=== PATIENT | male | born 1935 | race Caucasian/White ===

== ENCOUNTER → 2017-03-28 | Outpatient (CLI) | payer MEDICARE ==
[2013-11-09 16:02] VITALS: BMI 25.8
[~2017-03-28] MED LIST: ACET-1966 PO; ACET-3017 PO; ALBU8.5H IH; ANTI1CAP PO; ASPI81TA94 PO; BIMA2.5D5 OP; CALC-901 PO; CYCL10TA29 PO; DOCU-416 PO; ESOM20CA2 PO; GABA-549 PO; LACT1CAP6 PO; MULT-1287 PO; MULT-1381 PO; MULT-775 PO; MULT-964 PO; NAPR-1043 PO; ONDA4TAB PO; OXYC-865 PO; PER PO; PRAV40TA78 PO; PSYL0.4C2; PSYL0.5235 PO; PSYL3.4P2 PO; RIVA15TA PO; ROSU20TA13 PO; TADA5TAB7 PO; TAMS0.4C25 PO; [UNRECOGNIZED DRUG - CODE] PO; [UNRECOGNIZED DRUG - REMARK]
--- NOTE | 2017-03-28 21:10 | RADIOLOGY IMAGING REPORT ---
FACILITY: [facility] PATIENT NAME: Valente Carrillo : 1935 MR: [id number] V: [id number] EXAM DATE: ORDERING PHYSICIAN: CARL ENRIQUEZ TECHNOLOGIST: Location: [facility] Patient: Valente Carrillo : 1935 Visit/Account:[id number] Date of Sevice: 03/28/2017 EXAMINATION: High-resolution CT chest without IV contrast HISTORY: Cough. TECHNIQUE: Axial CT images of the chest were obtained without IV contrast, including high-resolutio n inspiratory and expiratory images, and prone images. Coronal and sagittal 2D reconstructed images w ere obtained. One of the following dose optimization techniques was utilized in the performance of this exam: Autom ated exposure control; adjustment of the mA and/or kV according to the patient's size; or use of an i terative reconstruction technique. Specific details can be referenced in the facility's radiology C T exam operational policy. COMPARISON: CTA chest with IV contrast 03/16/2014. FINDINGS: Lungs and pleura: There is a small region of fibrotic appearing linear and reticular opacity along t he peripheral aspect of the left lower lobe posteriorly, likely new or progressed from the prior exam of 2013. There is minimal subpleural fibrosis in the right lung base. No honeycombing. The mid and u pper lungs are unremarkable by CT. Central airways are patent. No bronchiectasis. No significant air trapping on expiratory imaging. No pleural effusion or pneumothorax. Mediastinum and will: There are multiple small calcified mediastinal lymph nodes, compatible with ol d granulomatous disease. No pathologically enlarged noncalcified lymph nodes. Heart, aorta, and great vessels: Mild ectasia of the ascending thoracic aorta, measuring 4.0 cm. Mil d coronary artery calcification. Normal heart size. No pericardial effusion. Chest lymph node assessment: Calcified mediastinal lymph nodes per above. No enlarged noncalcified l ymph nodes in the chest. Bones: Mild thoracolumbar scoliosis, with multilevel degenerative changes throughout the spine. No a cute osseous findings. Chest wall: Negative. Lower neck: Negative. Upper abdomen: Negative. IMPRESSION: 1. Small region of fibrotic appearing interstitial opacities in the left lower lobe posteriorly, with some minimal subpleural fibrosis in the right lung base. No honeycombing. 2. No focal consolidation or suspicious pulmonary nodule or mass. 3. Calcified mediastinal lymph nodes, suggesting old granulomatous disease. 4. Mild ectasia of the ascending thoracic aorta, measuring 4.0 cm. Report Dictated By: Andrew Higgins MD at 03/28/2017 8:57 PM Report E-Signed By: Andrew Higgins MD at 03/28/2017 9:06 PM WSN:[id number]
== END ==
LOC: CT 00:55
PROVIDERS: ATTEND Emergency Medicine
DX: R91.8 Other nonspecific abnormal finding of lung field (principal); I77.810 Thoracic aortic ectasia; I25.10 Atherosclerotic heart disease of native coronary artery without angina pectoris
CPT/HCPCS: 71250

== ENCOUNTER → 2017-05-29 | Outpatient (CLI) | payer MEDICARE ==
[2013-11-09 16:02] VITALS: BMI 25.8
--- NOTE | 2017-05-29 11:00 | EKG ---
[place] [facility] [place] NAME: DILCIA STRONG : [id number] MR: [id number] V: [id number] EXAM DATE: ORDERING PHYSICIAN: CARL ENRIQUEZ TECHNOLOGIST: TANNER Test Reason : PRE OP CLEARANCE Blood Pressure : / mmHG Vent. Rate : 049 BPM Atrial Rate : 049 BPM P-R Int : 206 ms QRS Dur : 096 ms QT Int : 412 ms P-R-T Axes : 063 072 023 degrees QTc Int : 372 ms Sinus bradycardia with premature supraventricular complexes Otherwise normal ECG When compared with ECG of 10-AUG-2014 08:59, premature supraventricular complexes are now present Confirmed by CARL ENRIQUEZ ([id number]) on 06/11/2017 9:28:32 AM Referred By: ZOE Confirmed By:CARL ENRIQUEZ
== END ==
LOC: LAB 10:22
PROVIDERS: ATTEND Emergency Medicine
DX: Z01.818 Encounter for other preprocedural examination (principal); R00.1 Bradycardia, unspecified; I49.3 Ventricular premature depolarization; Z85.46 Personal history of malignant neoplasm of prostate
CPT/HCPCS: 36415; G0103; 82040; 82247; 82310; 82374; 82435; 82565; 82947; 84075; 84132; 84153; 84155; 84295; 84450; 84460; 84520

== ENCOUNTER 2017-06-26 05:03 | Inpatient (IN) | payer MEDICARE, OTHER ==
[2017-05-23 14:23] LABS: PLATELET COUNT, AUTOMATED 155 K/uL (150-450)
[~2017-06-26] VITALS: Ht 182.9 cm; Wt 83.0 kg
[2017-06-26] VITALS (9 sets, daily range): BP systolic 120–157; BP diastolic 75–101
[~2017-06-26 05:03] MED LIST changes: +TRAM100T8 PO
[2017-06-26] MEDS ORDERED: ceFAZolin(*) 2GM/D5W 50ML 50 ML IVPB ONE (06:00)
[2017-06-26] MEDS ORDERED: FAMOTIDINE 20 MG TAB PO ONE ×2 (06:00)
[2017-06-26] MEDS ORDERED: NORMOSOL R SOLN(*) 1000 ML BAG 1,000 ML IV PRN ×2 (06:00)
[2017-06-26] MEDS ORDERED: MIDAZOLAM 2 MG/2 ML VIAL IVP PRN ×2 (06:00)
[2017-06-26] MEDS ORDERED: LIDOCAINE/SOD BICARB 8.4% SYR ID ONE ×2 (06:00)
[2017-06-26] MEDS ORDERED: THROMBIN (BOVINE) 20,000 UNIT VIAL ONE (07:30)
[2017-06-26] MEDS ORDERED: fentaNYL CITR 100 MCG/2 ML AMP ONE ×5 (10:13→15:00)
[2017-06-26] MEDS ORDERED: MIDAZOLAM 2 MG/2 ML VIAL ONE (10:13)
[2017-06-26] MEDS ORDERED: PROPOFOL EMUL(*) 10MG/ML 20 ML 20 ML ONE (10:14)
[2017-06-26] MEDS ORDERED: ROCURONIUM BROM 10 MG/ML 10 ML ONE ×2 (10:14→10:16)
[2017-06-26] MEDS ORDERED: LIDOCAINE MPF 1% 5 ML VIAL ONE (10:14)
[2017-06-26] MEDS ORDERED: ONDANSETRON 4 MG/2 ML VIAL ONE (10:14)
[2017-06-26] MEDS ORDERED: DEXAMETHASONE SOD PHOS 10MG/ML ONE (10:14)
[2017-06-26] MEDS ORDERED: KETAMINE HCL 500 MG/10 ML VIAL ONE (11:39)
[2017-06-26] MEDS ORDERED: NS 0.9% IRRIGATION 1000ML PLCT IR ONE (11:42)
[2017-06-26] MEDS ORDERED: ePHEDrine 25 MG/5 ML DISP.SYR IVP ONE ×2 (11:58→13:00)
[2017-06-26] MEDS ORDERED: GLYCOPYRROLATE 0.2 MG/ML SDV ONE (12:15)
[2017-06-26] MEDS ORDERED: SUGAMMADEX SOD 500 MG/5 ML SDV ONE (13:39)
--- NOTE | 2017-06-26 14:13 | RADIOLOGY IMAGING REPORT ---
FACILITY: [facility] [place] PATIENT NAME: Valente Carrillo : 1935 MR: [id number] V: [id number] EXAM DATE: ORDERING PHYSICIAN: CHARLOTTE FORTE TECHNOLOGIST: [place] [facility] [place] : 1935 Visit/Account:[id number] Date of Sevice: 06/26/2017 Exam type: LUMBAR SPINE 1 VIEW History: L4-5 LAMINECTOMY, L4-5 POSTEROLATERAL FUSION Comparison: MR lumbar spine September 21, 2016. Findings: Two intraoperative prone crosstable lateral views of the lumbar spine were submitted. Surgical instr uments project over the operative field in addition to a sponge markers. Images demonstrate placemen t of pedicle screws at L4 and L5. Assuming the patient has five lumbar type vertebra IMPRESSION: 1. As above Report Dictated By: Corinne Galloway MD at 06/26/2017 2:08 PM Report E-Signed By: Corinne Galloway MD at 06/26/2017 2:10 PM WSN:[email or web address]
[2017-06-26] MEDS ORDERED: ACETAMINOPHEN(*)1000 MG/100 ML 100 ML IVPB ONE (14:25)
[2017-06-26] MEDS ORDERED: oxyCODONE HCL 5 MG CAP PO PRN (14:45)
[2017-06-26] MEDS ORDERED: MAGNESIUM HYDROXIDE* 30ML UDCP PO PRN (14:45)
[2017-06-26] MEDS ORDERED: BENZOCAINE/MENTHOL 1 EACH LOZG PO PRN (14:45)
[2017-06-26] MEDS ORDERED: HYDROmorphone HCL 2 MG/ML SDV IVP PRN (14:45)
[2017-06-26] MEDS ORDERED: LR(*) 1000 ML BAG 1,000 ML IV PRN (14:45)
[2017-06-26] MEDS ORDERED: FLUSH 10 ML SYR IVP PRN (14:45)
[2017-06-26] MEDS ORDERED: diphenhydrAMINE 25 MG CAP PO PRN (14:45)
[2017-06-26] MEDS ORDERED: BISACODYL 10 MG SUPP PR PRN (14:45)
[2017-06-26] MEDS ORDERED: ONDANSETRON 4 MG/2 ML VIAL IVP PRN (14:45)
[2017-06-26] MEDS ORDERED: DIAZEPAM 5 MG TAB PO PRN (14:45)
[2017-06-26] MEDS ORDERED: TRAM-420 PO (17:07)
[2017-06-26] MEDS ORDERED: ACET-2146 PO (17:07)
[2017-06-26] MEDS ORDERED: ACETAMINOPHEN(*)1000 MG/100 ML 100 ML IVPB PRN (18:00)
[2017-06-26] MEDS: APAP/HYDROCODONE 325/5 TAB PO PRN ×3 (18:13→22:25)
[2017-06-26] MEDS ORDERED: ACETAMINOPHEN 500 MG TAB PO PRN (20:00)
[2017-06-26] MEDS: DOCUSATE SODIUM 100 MG CAP PO SCH (20:25)
[2017-06-26] MEDS: ceFAZolin(*) 2GM/D5W 50ML 50 ML IVPB SCH (20:27)
--- NOTE | 2017-06-26 22:45 | Hospitalist Consultation ---
History of Present Illness Requesting Physician Dr. Forte Reason for Consult History of pulmonary embolism History of Present Illness This patient was admitted for spine surgery. It is reported that the surgery went well and was without complication. History Problems: (1) Trigeminal neuralgia Status: Chronic (2) Prostate cancer Status: Resolved (3) Kidney stone on left side Status: Chronic (4) Ventricular quadrigeminy Status: Chronic (5) Erectile dysfunction Status: Chronic (6) History of pulmonary embolism Status: Chronic (7) History of appendectomy Status: Chronic (8) H/O laminectomy Status: Chronic (9) Cataract extraction status Status: Chronic Home Meds Active Scripts Albuterol Sulfate 90 Mcg/Act (PROAIR HFA 90 MCG/ACT) 8.5 Gm Hfa.aer.ad, 2 PUFF IH Q4-6H, #1 INHALER Prov:BHUMI LOPEZ MD 03/25/17 Pravastatin Sodium (PRAVASTATIN SODIUM) 40 Mg Tablet, 40 MG PO QDAY, #30 TAB 11 Refills Prov:BHUMI LOPEZ MD 03/25/17 Reported Medications Acetaminophen 500 Mg Tab (ACETAMINOPHEN EXTRA STRENGTH) 500 Mg Tablet, 500 MG PO QID for PAIN, TAB 06/26/17 Tramadol Hcl (TRAMADOL HCL) 50 Mg Tablet, 50 MG PO BID Y for PAIN, TAB 06/26/17 Naproxen Sodium (ALEVE) 220 Mg Tablet, 1 TAB PO BID, TAB 01/15/17 Antiox#10/Om3/Dha/Epa/Lut/Zeax (I-CAPS WITH LUTEIN-OMEGA 3 SFG) 1 Each Capsule, 1 EACH PO DAILY, CAPSULE 01/15/17 Psyllium Husk (Metamucil) Unknown Strength Capsule 01/15/17 Multivitamin (MEN'S MULTI-VITAMIN) 1 Each Tablet, 1 EACH PO DAILY 01/15/17 Aspirin (ASPIRIN) 81 Mg Tab.chew, 81 MG PO QDAY, TAB.CHEW 08/06/14 Calcium Citrate/Vitamin D3 (CALCIUM CITRATE - VIT D CAPLET) 1 Each Tablet, 1 EACH PO BID 11/09/13 Glucosamine Sulfate 2KCL (GLUCOSAMINE SULFATE) 1,000 Mg Capsule, 1 CAPSULE PO BID, CAPSULE 11/09/13 Bimatoprost (LUMIGAN) 2.5 Ml Drops, 0.01 ML OP DAILY 11/08/13 Discontinued Reported Medications Tramadol Hcl (TRAMADOL HCL) 100 Mg Tab.er.24h, 300 MG PO BID, TAB 06/18/17 Allergies: Coded Allergies: corn (Verified Allergy, Severe, ANAPHYLAXIS, 08/06/14) Uncoded Allergies: CATS (Allergy, Mild, 04/27/08) Hx Smoking: No Smoking Status: Never Smoker Exposure to Second Hand Smoke?: No Caffeine Intake: Coffee, Soda Caffeine/Cups Per Day: 2 CPD Hx Alcohol Use: Yes Alcohol Used: Beer, Wine Hx Substance Use Disorder: No Social Drug Use: Never Review of Systems All Systems Reviewed/Normal: Yes Exam Vital Signs Vital Signs Date Time Temp Pulse Resp B/P (MAP) Pulse Ox O2 Delivery O2 Flow Rate FiO2 06/26/17 22:23 85 06/26/17 22:23 Nasal Cannula 1.0 06/26/17 18:20 129/101 (110) 06/26/17 17:30 89 06/26/17 15:53 16 06/26/17 15:53 97.8 Neuro: No Gross deficits Eyes: PERRLA Cardiovascular: Regular Rate and Rhythm Respiratory: Clear to Auscultation Extremities: No Edema Integumentary: No Cyanosis Assessment and Plan Problems: (1) History of pulmonary embolism *Optional Permanent Comment*: 2013 Last Edited By: Bhumi Lopez MD on May 13:01 Status: Chronic Assessment & Plan: He does have a history of pulmonary embolism in 2013, but has been off anticoagulation since his initial treatment period. Dr. Forte has ordered a 30 day course of Xarelto, but we will need to clarify when this can be started. Copies to: CHARLOTTE FORTE MD Venous Thromboembolism Antithrombotics Is Pt On Any Antithrombotics?: Yes Exam Sepsis Risk: No Definite Risk NATHAN ADAMS DO Jun 26, 2017 22:45
[2017-06-27 04:09] VITALS: BP 135/72
[2017-06-27] MEDS: ceFAZolin(*) 2GM/D5W 50ML 50 ML IVPB SCH ×2 (04:15→11:56)
[2017-06-27] MEDS ORDERED: PER PO ×2 (06:46→10:25)
[2017-06-27] MEDS ORDERED: DIA5 PO ×2 (06:47→10:24)
[2017-06-27] MEDS ORDERED: DOCU240C84 PO ×2 (06:47→10:26)
[2017-06-27] MEDS: APAP/HYDROCODONE 325/5 TAB PO PRN ×2 (07:18→12:02)
[2017-06-27 07:20] VITALS: BP 142/81
[2017-06-27] MEDS: DOCUSATE SODIUM 100 MG CAP PO SCH (08:37)
[2017-06-27] MEDS ORDERED: PRAVASTATIN SOD 20 MG TAB PO SCH (09:00)
[2017-06-27] MEDS ORDERED: BIMATOPROST 2.5 ML BTL 2.5 ML BTL OP SCH (09:00)
--- NOTE | 2017-06-27 09:37 | RADIOLOGY IMAGING REPORT ---
FACILITY: [facility] PATIENT NAME: Valente Carrillo : 1935 MR: [id number] V: [id number] EXAM DATE: ORDERING PHYSICIAN: CHARLOTTE FORTE TECHNOLOGIST: Location: [facility] [place] Patient: Valente Carrillo : 1935 Visit/Account:[id number] Date of Sevice: 06/27/2017 Exam type: LUMBAR SPINE 2 OR 3 VIEW History: L4-5 laminectomy and posterior lateral fusion Comparison: June 26, 2017. Findings: AP and lateral views of the lumbar spine demonstrate laminectomy changes at L4 and posterior lumbar i nterbody fusion at L4-5 with the aid of pedicle screws and short segment posterior fixation rods. Th e vertebral bodies appear in good anatomic alignment. Incidentally noted is moderate severe disc spa ce narrowing at L5-S1 with sclerosis of the adjacent endplates. Also noted is severe disc space narr owing at T11-12, T12-L1 and L1-L2 with anterior osteophytes. Incidentally noted are brachytherapy se eds projecting over the prostate IMPRESSION: 1. Postsurgical changes at L4-5 from posterior lumbar interbody fusion with the vertebral bodies danilo earing in good anatomic alignment Additional spondylotic changes of the visualized thoracal lumbar spine as described Report Dictated By: Corinne Galloway MD at 06/27/2017 9:30 AM Report E-Signed By: Corinne Galloway MD at 06/27/2017 9:33 AM WSN:[email or web address]
[2017-06-27] MEDS ORDERED: RIVAROXABAN 10 MG TAB PO ONE (10:00)
--- NOTE | 2017-06-27 10:09 | Hospitalist Progress Note ---
Subjective Progress Notes Subjective He has no complaints this morning. Patient Complains of: Cardiovascular: No: Chest Pain Respiratory: No: Shortness of Breath Physical Exam Vital Signs Date Time Temp Pulse Resp B/P (MAP) Pulse Ox O2 Delivery O2 Flow Rate FiO2 06/27/17 09:20 85 06/27/17 09:00 Room Air 06/27/17 07:20 80 16 142/81 (101) 06/27/17 04:09 98.6 0.5 Intake and Output 06/28/17 06:59 Intake Total 120 ml Balance 120 ml Intake Oral 120 ml General Appearance: Alert, Awake, No Acute Distress, Afebrile Cardiovascular: Regular Rate and Rhythm Respiratory: No Respiratory Distress, Clear to Auscultation Psych: Alert & Oriented X3, Appropriate Mood & Affect Assessment and Plan Problems: (1) History of pulmonary embolism *Optional Permanent Comment*: 2013 Last Edited By: Bhumi Lopez MD on May 13:01 Status: Chronic Assessment & Plan: He does have a history of pulmonary embolism in 2013, but has been off anticoagulation since his initial treatment period. Dr. Cooper has ordered a 30 day course of Xarelto. Per Dr. Cooper, we should start Xarelto today. He will be given his first Xarelto prior to discharge. Patient is aware to start prescription at home tomorrow. Exam Sepsis Risk: No Definite Risk NELLA TALAVERA ELECTRICIAN SUPERVISOR Jun 27, 2017 10:09
[2017-06-27] MEDS ORDERED: RIVA10TA PO (10:11)
[2017-06-27 10:41] VITALS: Ht 182.9 cm; Wt 83.0 kg
[2017-06-27 12:44] VITALS: BP 137/85
--- NOTE | 2017-06-27 13:46 | Medical Nutrition Therapy ---
Nutrition Anthropometrics Height (Inches): 72.00 Height (Calculated Centimeters: [phone] Weight (Pounds): 183 Weight (Calculated Kilograms): 83.007 BMI Calculated: 24.82 Henry Nutrition Score: Adequate Henry Nutrition Risk Score: 19 Dietary Referral Nutrition Risk Factors: Nutrition Risk Comment: Nutritional Diagnosis Nutritional Risk Acuity 4: Good Appetite Past Medical History: trigeminal neuralgia, prostate cancer, cataracts, appendectomy Nutritional Acuity: 4-Low Nutrition Diagnosis: Increased Nutrient Needs Nutrition Etiology: Mechanical/Motor Issues Nutrition Problem/Etiology/Sym: increased need for healing post spine surgery. Energy Requirement: 2075 (kcal/day (25 kcal/kg)) Protein Requirement: 83 (g/dy (1.0 g/kg)) Fluid Requirement: 2500 (mL/day (30 mL/kg)) Diet Type: Diet as Tolerated JELENA/REG Nutrition Intervention: Cont diet as ordered, Encourage intake Nutrition Monitoring & Eval Nutrition Goals: Eat 75-100% Meal Nutrition Follow-Up: Good Intake RD Patient Assessment Time: [address] Assessment Type: RD Assessment Patient Nutrition Acuity: 4-Low Follow Up Date: Jul 04, 2017 Nutritional Comment: 06/27 Pt admitted for spine surgery. Pt diet as tolerated and has consumed 100% x 1 meal since admit. Pt has no nutritionally relevant labs. Monitor pt progress and intake. LOS COWAN Jun 27, 2017 10:49
--- NOTE | 2017-06-27 15:09 | OPERATIVE REPORT 1 ---
EVENT DATE: June 26, 2017 SURGEON: Bryon Cooper MD ANESTHESIOLOGIST: Antonino King MD ANESTHESIA: General endotracheal anesthesia. COUGAR HUNTER: TAL Toney PREOPERATIVE DIAGNOSIS L4-L5 spinal stenosis with degenerative spondylolisthesis. POSTOPERATIVE DIAGNOSIS L4-L5 spinal stenosis with degenerative spondylolisthesis. PROCEDURE PERFORMED L4-L5 laminectomy with posterolateral instrumented fusion. INTRAVENOUS FLUIDS 1700 mL ESTIMATED BLOOD LOSS 150 mL IMPLANTS USED Reline pedicle screws 6.5 mm x 45 mm from [employer] times four, 45 mm connecting rods from [employer] times two, and locking caps from [employer] times four. SPECIMENS None. DRAINS None. COMPLICATIONS None. DISPOSITION Postanesthesia care unit. INDICATIONS FOR SURGERY Mr. Carrillo is a 81-year-old gentleman who presented to my clinic with chief complaint of bilateral lower extremity radiating pain, numbness, and tingling with decreased walking tolerance secondary to sensation of weakness and heaviness in his legs. He had undergone a right-sided L4-L5 laminoforaminotomy in the past with some relief of symptoms, but then in the recent months, symptoms had worsened. He had failed physical therapy, injection therapy, activity modifications, and medications. His physical examination revealed no focal neurologic deficits, but his imaging studies showed severe spinal stenosis at the L4-L5 level with a grade 1 anterolisthesis as well. The canal was quite tight secondary to a broad-based disk bulge, facet hypertrophy, and ligamentum flavum thickening. Secondary to ongoing symptoms and failure to improve with nonsurgical care, Mr. Carrillo was offered and elected to undergo L4- L5 laminectomy and fusion. Prior to surgery, I explained in detail to the patient the possible risks of surgery. These included bleeding, infection, damage to surrounding structures, nerve root injury, spinal fluid leak, meningitis, persistent and/or worsening pain, , blindness, sexual dysfunction, autonomic nervous system dysfunction , and other unforeseen medical and surgical complications. An understanding that spinal surgery is more predictive in improving extremity discomfort than axial spine pain was stressed. DESCRIPTION OF PROCEDURE On the day of surgery, the patient was met in the preoperative hold area, and all questions were answered. The operative site was identified and marked by myself. The patient was taken to the operating room, and after succumbing to anesthesia, was placed in the prone position on a Kit table. Care was taken to maintain appropriate perfusion pressures during anesthesia. All bony protuberances and soft tissues were well padded in the standard fashion. Preoperative antibiotics were administered according to the appropriate timing schedule. At the conclusion of the procedure, sponge and needle counts were correct times two. Final timeout was undertaken by members of the operating team to confirm correct patient, correct levels, and correct surgery. An incision was made over the intended spinal levels, and sharp dissection was taken down to the posterior aspect of the spinous processes. The fascia was incised, and soft tissue was elevated off the posterior elements in a subperiosteal manner. A lateral radiograph was obtained to confirm correct levels. The spinous process and lamina of L4 was removed using a rongeur and a high-speed cortez. Ligamentum flavum was exposed, and a curette was used to undermine the inferior insertion of the ligamentum flavum on the inferior aspect of the L4 lamina. A Deangelo elevator was used to separate dural adhesions from surrounding bone and soft tissue prior to use of the Kerrison punch. A 4.0 Kerrison rongeur was used to perform a midline decompression. Bilateral lateral recess decompressions were performed using 3.0 and 4.0 Kerrison rongeurs. At the conclusion of the procedure, the nerve roots of L4 and L5 were mobilized, and the foramina were checked with Sarah Ann elevator and Landa probe to ensure complete decompression in the lateral recesses and the foramina of both the L4 and the L5 nerve roots. FloSeal and patties were used to achieve hemostasis in the lateral gutters, and attention was then turned to the fusion portion of the procedure. Starting points for pedicle screws were located at the L4 and L5 levels bilaterally. Electrocautery was used to dissect soft tissues off the pars interarticularis, the lateral borders of the facet joints, and the transverse processes of L4 and L5 bilaterally. Starting points at approximately the intersection of the pars interarticularis, the mid portion of the transverse process and the lateral border of the superior articular process were identified. A high-speed drill was used to open the cortex, and a Lenke-type probe was then used to cannulate the pedicles at L4 and L5 bilaterally. After cannulation of each pedicle, a ball tip feeler was used to palpate superior, inferior, medial, and lateral in the pedicle to ensure no bony breaching. Screws 45 mm x 6.5 mm were chosen and inserted in a standard fashion. Each screw was tested with neurophysiologic monitoring, and these all tested near 30 mA. A lateral radiograph confirmed appropriate placement of all screws. Connecting rods 45 mm were chosen and placed within the tulips. The locking caps were placed and tightened and then finally tightened. Care was taken to ensure that madalyn was protruding from the screws both proximally and distally. The wound was then irrigated with copious sterile saline solution and the transverse processes decorticated with a high-speed cortez. Previously prepared local bone graft was then packed in the lateral recesses bilaterally. The previously placed surgical patties in the lateral gutters of the laminectomy defect were removed, and the wound was then closed in layers using interrupted sutures for the deep fascia, inverted interrupted sutures for the superficial fascia, and then a running subcuticular skin stitch. Sponge and needle counts were correct times two. POSTOPERATIVE CARE PLAN Mr. Carrillo will remain in the hospital overnight. Should he do well enough, then he can potentially go home after visiting with physical therapy tomorrow. He will follow up in two weeks' time in my clinic for examination and wound check. MELANY
== END 2017-06-27 14:00 | disposition home or self-care (01) | DRG 460 ==
LOC: OR 05:03 → MED 15:53
PROVIDERS: ADMIT Orthopaedic Surgery; ATTEND Orthopaedic Surgery
PROC: 0SG0071 Fusion of Lumbar Vertebral Joint with Autologous Tissue Substitute, Posterior Approach, Posterior Column, Open Approach (ICD-10-PCS; principal; 2017-06-26 11:20)
DX: M48.061 Spinal stenosis, lumbar region without neurogenic claudication (principal); M43.16 Spondylolisthesis, lumbar region; G50.0 Trigeminal neuralgia; N20.0 Calculus of kidney; N52.9 Male erectile dysfunction, unspecified; J45.909 Unspecified asthma, uncomplicated; M85.80 Other specified disorders of bone density and structure, unspecified site; E78.5 Hyperlipidemia, unspecified; K21.9 Gastro-esophageal reflux disease without esophagitis; I49.3 Ventricular premature depolarization; Z86.711 Personal history of pulmonary embolism; Z85.46 Personal history of malignant neoplasm of prostate; Z91.018 Allergy to other foods
CPT/HCPCS: 36415; 72020; 72100; 85025; 86850; 86900; 86901; 97161; A9270; C1713; J0131; J0690; J1100; J2001; J2250; J2405; J2704; J3010; J3490; J7120

== ENCOUNTER 2017-08-29 00:54 | Day surgery (SDC) | payer MEDICARE ==
[2017-06-27 10:41] VITALS: Ht 182.9 cm; Wt 77.1 kg
[~2017-08-29] VITALS: Ht 182.9 cm; Wt 77.1 kg
[~2017-08-29 00:54] MED LIST changes: +ACET-2146 PO; +DIA5 PO; +DOCU240C84 PO; +GLUC100026 PO; +LUTEIN PO; +OMEGA PO; +RIVA10TA PO; +TRAM-420 PO
--- NOTE | 2017-08-29 06:55 | Short(Outpt) Discharge Summary ---
Discharge Summary Reason for Hosp/Final Diag: (1) Encounter for screening colonoscopy Hospital Course & Plan: sigmoid diverticulosis Departure Discharge to: Home Discharge Instructions Home Meds Active Scripts Albuterol Sulfate 90 Mcg/Act (PROAIR HFA 90 MCG/ACT) 8.5 Gm Hfa.aer.ad, 2 PUFF IH Q4-6H, #1 INHALER Prov:CARL ENRIQUEZ MD 03/25/17 Pravastatin Sodium (PRAVASTATIN SODIUM) 40 Mg Tablet, 40 MG PO QDAY, #30 TAB 11 Refills Prov:CARL ENRIQUEZ MD 03/25/17 Reported Medications [Lutein/[place]-3] No Conflict Check, 1 CAP PO DAILY 08/22/17 Glucosamine Sulfate 2KCL (GLUCOSAMINE) 1,000 Mg Tablet, 1000 MG PO BID 08/22/17 Aspirin (ASPIRIN) 81 Mg Tab.chew, 81 MG PO QDAY, TAB.CHEW 08/22/17 Docusate Calcium (SURFAK) 240 Mg Capsule, 240 MG PO DAILY, #9 CAPSULE 06/27/17 Psyllium Husk (Metamucil) Unknown Strength Capsule 01/15/17 Multivitamin (MEN'S MULTI-VITAMIN) 1 Each Tablet, 1 EACH PO DAILY 01/15/17 Calcium Citrate/Vitamin D3 (CALCIUM CITRATE - VIT D CAPLET) 1 Each Tablet, 1 EACH PO BID 11/09/13 Bimatoprost (LUMIGAN) 2.5 Ml Drops, 0.01 ML OP DAILY 11/08/13 Discontinued Reported Medications Docusate Calcium (SURFAK) 240 Mg Capsule, 240 MG PO QDAY, #9 CAPSULE 06/27/17 Oxycodone/Acetaminophen (OXYCODONE/ACETAMINOPHEN 5MG/325 MG) 5 Mg/325 Mg Tab, 1- 2 TAB PO Q6H Y for PAIN, #49 06/27/17 Diazepam (VALIUM) 5 Mg Tablet, 5 MG PO Q8H Y for SPASMS, #25 TAB 06/27/17 Rivaroxaban 10 MG (Xarelto 10 MG) 10 Mg Tablet, 1 TAB PO DAILY for 30 Days 06/27/17 Diazepam (VALIUM) 5 Mg Tablet, 5 MG PO Q8H Y for SPASMS, #25 TAB 06/27/17 Oxycodone/Acetaminophen (OXYCODONE/ACETAMINOPHEN 5MG/325 MG) 5 Mg/325 Mg Tab, 1- 2 TAB PO Q4-6H Y for PAIN, #49 06/27/17 Diet: High Fiber Activity: As Tolerated ADELE JOHNSON MD Aug 29, 2017 06:55
--- NOTE | 2017-08-29 06:55 | Post Operative Progress Note ---
Post Operative Progress Note Date: Aug 29, 2017 Time: 09:34 Surgeon: allyson Anesthesia: dr sharp Pre-Op Diagnosis: screening colonoscopy Post-Op Diagnosis: sigmoid diverticulosis Procedure(s): colonoscopy ADELE JOHNSON MD Aug 29, 2017 06:55
[2017-08-29 08:21] VITALS: BP 143/87
[2017-08-29] MEDS ORDERED: LIDOCAINE/SOD BICARB 8.4% SYR ID ONE (08:30)
[2017-08-29] MEDS ORDERED: NORMOSOL R SOLN(*) 1000 ML BAG 1,000 ML IV PRN (08:30)
[2017-08-29 09:34] VITALS: BP 90/60
[2017-08-29 09:45] VITALS: BP 97/69
[2017-08-29 10:00] VITALS: BP 132/89
[2017-08-29 10:08] VITALS: BP 143/91
[2017-08-29 10:10] VITALS: BP 132/92
--- NOTE | 2017-08-29 11:13 | NACHTIGAL COLONOSCOPY ---
EVENT DATE: August 29, 2017 SURGEON: Guille Welch MD ANESTHESIOLOGIST: Barry Saravia MD ANESTHESIA: IV Sedation OPEN SOAPER TENDER: Staff PREOPERATIVE DIAGNOSIS Screening colonoscopy. POSTOPERATIVE DIAGNOSIS Sigmoid diverticulosis. PROCEDURE PERFORMED Colonoscopy. DESCRIPTION OF PROCEDURE The patient was placed in the left lateral decubitus position and given intravenous sedation. The rectal examination was unremarkable. The flexible colonoscope was inserted and advanced to the cecum. He had an excellent bowel prep. The ileocecal valve and base of the cecum were identified. The scope was slowly withdrawn. Care was taken to look behind the haustral folds. No abnormalities were noted in the cecum, right colon, transverse or descending colon. He had multiple diverticula in the sigmoid colon. No evidence of diverticulitis. The rectum was normal. The scope was retroflexed and that appeared to be normal. Most likely he will not require another colonoscopy because of his age. [facility]
== END 2017-08-29 10:30 | disposition home or self-care (01) ==
LOC: OR 00:54
PROVIDERS: ATTEND Surgery
DX: Z12.11 Encounter for screening for malignant neoplasm of colon (principal); K57.30 Diverticulosis of large intestine without perforation or abscess without bleeding
CPT/HCPCS: 00812; G0121

== ENCOUNTER → 2017-09-25 | Outpatient (CLI) | payer MEDICARE ==
[2017-06-27 10:41] VITALS: BMI 24.8
[~2017-09-25] MED LIST changes: -ROSU20TA13 PO; +ROSU20TA5 PO
== END ==
LOC: RESP 19:44
PROVIDERS: ATTEND Emergency Medicine
DX: G47.37 Central sleep apnea in conditions classified elsewhere (principal); G47.33 Obstructive sleep apnea (adult) (pediatric); G47.61 Periodic limb movement disorder

== ENCOUNTER → 2017-10-07 | Outpatient (CLI) | payer MEDICARE ==
[2017-06-27 10:41] VITALS: BMI 24.8
== END ==
LOC: LAB 13:16
PROVIDERS: ATTEND Emergency Medicine
DX: G47.61 Periodic limb movement disorder (principal)
CPT/HCPCS: 36415; 82607; 82746

== ENCOUNTER → 2017-10-18 | Outpatient (CLI) | payer MEDICARE ==
[2017-06-27 10:41] VITALS: BMI 24.8
== END ==
LOC: RAD 02:10
PROVIDERS: ATTEND Emergency Medicine
DX: I34.0 Nonrheumatic mitral (valve) insufficiency (principal); I07.1 Rheumatic tricuspid insufficiency; I37.1 Nonrheumatic pulmonary valve insufficiency
CPT/HCPCS: 93306

== ENCOUNTER → 2018-07-25 | Outpatient (CLI) | payer MEDICARE ==
[2017-06-27 10:41] VITALS: BMI 24.8
[~2018-07-25] MED LIST changes: +ATOR40TA24 PO; +DICL100G39 TOP; +UMEC1DIS INH
[2018-07-25 10:35] LABS: PLATELET COUNT, AUTOMATED 169 K/uL (150-450)
[2018-07-25 10:48] LABS: LDL CHOLESTEROL 66 mg/dl
== END ==
LOC: LAB 10:16
PROVIDERS: ATTEND Emergency Medicine
DX: Z12.5 Encounter for screening for malignant neoplasm of prostate (principal); G47.33 Obstructive sleep apnea (adult) (pediatric); M85.80 Other specified disorders of bone density and structure, unspecified site; E78.5 Hyperlipidemia, unspecified; R73.9 Hyperglycemia, unspecified
CPT/HCPCS: 36415; 82306; 83036; 85025; G0103; 82040; 82247; 82310; 82374; 82435; 82465; 82565; 82947; 83718; 84075; 84132; 84153; 84155; 84295; 84450; 84460; 84478; 84520

== ENCOUNTER 2018-08-30 11:59 | Emergency (ER) | payer MEDICARE ==
[2017-06-27 10:41] VITALS: Wt 86.2 kg
--- NOTE | 2018-08-30 12:03 | ER Report ---
History and Physical Time Seen By MD: 12:01 [facility]/ROS CHIEF COMPLAINT: Back pain HISTORY OF PRESENT ILLNESS: Patient is an 82-year-old male who presents emergency department approximately 24 hours of lower paraspinal lumbar pain. Patient states he's had a history of back pain in the past and is followed by Dr. Charlotte Cooper at [facility]. Some time last year he had a L4-L5 fusion and laminectomy. He denies any saddle anesthesia, denies any retention or incontinence of urine or stool although he did stay he was having a difficult time with bowel movement this morning but was able to successfully have one. He denies fevers or chills. Denies any abdominal pain. He states that yesterday in the early part of the day he had been doing some work outside and when going to bed and he heard and felt a snap in his back he did not have immediate pain at that time. He states that by last evening after returning from [place] he began developing tightness and pain. He took Aleve last night with minimal relief of his symptoms. For this reason he presents to the emergency de partment for evaluation Allergies: Coded Allergies: corn (Verified Allergy, Severe, ANAPHYLAXIS, 08/06/14) Uncoded Allergies: CATS (Allergy, Mild, 04/27/08) Home Meds Active Scripts Docusate Sodium (COLACE) 100 Mg Capsule, 100 MG PO QDAY, #10 CAPSULE 0 Refills Take this medicine to prevent constipation while you are on the Percocet. Prov:GREER SIBLEY MD 08/30/18 Methocarbamol (ROBAXIN-750) 750 Mg Tablet, 1500 MG PO QID for Muscle Relaxant, #30 TAB 0 Refills Prov:GREER SIBLEY MD 08/30/18 Oxycodone Hcl/Acetaminophen (PERCOCET 5-325 MG TABLET) 1 Each Tablet, 1 EACH PO Q4H for PAIN, #20 TAB 0 Refills Prov:GREER SIBLEY MD 08/30/18 Umeclidinium Brm/Vilanterol Tr (Anoro Ellipta 62.5-25 Mcg INH) 1 Each Disk.w.dev, 1 INHALATION INH DAILY, #1 INHALER Prov:CARL ENRIQUEZ MD 07/29/18 Pravastatin Sodium (PRAVASTATIN SODIUM) 40 Mg Tablet, 40 MG PO QDAY, #90 TAB 3 Refills Prov:CARL ENRIQUEZ MD 03/12/18 Diclofenac Sodium 1% Gel (VOLTAREN 1% GEL) 100 Gm Gel..gram., 4 GM TOP QID, #1 TUBE 3 Refills 4 grams four times a day for left knee and 2 grams four times a day for left thumb joint Prov:CARL ENRIQUEZ MD 01/23/18 Albuterol Sulfate 90 Mcg/Act (PROAIR HFA 90 MCG/ACT) 8.5 Gm Hfa.aer.ad, 2 PUFF IH Q4-6H, #1 INHALER Prov:CARL ENRIQUEZ MD 03/25/17 Reported Medications [Lutein/[place]vin-3] No Conflict Check, 1 CAP PO DAILY 08/22/17 Glucosamine Sulfate 2KCL (GLUCOSAMINE) 1,000 Mg Tablet, 1000 MG PO BID 08/22/17 Aspirin (ASPIRIN) 81 Mg Tab.chew, 81 MG PO QDAY, TAB.CHEW 08/22/17 Psyllium Husk (Metamucil) Unknown Strength Capsule 01/15/17 Multivitamin (MEN'S MULTI-VITAMIN) 1 Each Tablet, 1 EACH PO DAILY 01/15/17 Calcium Citrate/Vitamin D3 (CALCIUM CITRATE - VIT D CAPLET) 1 Each Tablet, 1 EACH PO BID 11/09/13 Bimatoprost (LUMIGAN) 2.5 Ml Drops, 0.01 ML OP DAILY 11/08/13 Past Medical/Surgical History History of trigeminal neuralgia, COPD, pulmonary embolism, kidney stones, prostate cancer, appendectomy, vasectomy, laminectomy and fusion history of cervical stenosis history of lumbar stenosis. Hx Smoking: No Smoking Status: Never Smoker Exposure to Second Hand Smoke?: No Hx Substance Use Disorder: No Hx Alcohol Use: Yes Constitutional Vital Sign - Last 24 Hours 08/30/18 08/30/18 08/30/18 08/30/18 11:59 12:05 12:07 12:54 Temp 98.0 Pulse ??? 66 Resp 20 B/P (MAP) 161/90 (113) 161/90 140/75 (96) Pulse Ox 89 O2 Delivery Room Air 08/30/18 08/30/18 08/30/18 12:59 13:00 13:04 Temp 98.2 Pulse 63 B/P (MAP) 137/79 (98) Pulse Ox 90 Physical Exam General appearance: alert no distress. Back: Thoracic spine has no spinal or paraspinal tenderness to palpation. Lumbar spine has no spinal tenderness moderateparaspinal tenderness Gastroinal: Abdomen is soft, non tender, no masses.. Skin: No lesions and no rashes. Vascular: Normal capillary refill and pulses to feet. Neurological: Motor function: leg strength normal and symmetric for both legs Sensory function: normal for all leg dermatomes. Straight leg raise negative to 70 degrees. Reflexes normal bilaterally on legs. [ ] DIFFERENTIAL DIAGNOSIS: After history and physical exam differential diagnosis was considered for back pain including muscular strain, herniated disc, intra- abdominal and renal causes. Medical Decision Making EKG/Imaging Imaging FACILITY: [facility] [place] PATIENT NAME: Valente Carrillo : 1935 MR: [id number] V: [id number] EXAM DATE: ORDERING PHYSICIAN: GREER SIBLEY TECHNOLOGIST: [place] [facility] [place] Patient: Valente Carrillo : 1935 Visit/Account:[id number] Date of Sevice: 08/30/2018 EXAMINATION: Lumbar spine, 2 views 08/30/2018 12:21 PM HISTORY: Pain. Prior surgery. COMPARISON: 06/27/2017 FINDINGS: 5 nonrib-bearing lumbar vertebral levels. Previous madalyn and pedicle screw fusion at L4-5 with L4 laminectomy. Metallic fixation is intact. Increasing L4-5 anterolisthesis, measuring about 1 cm, previously 2 to 3 mm. 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 Thoracolumbar degenerative changes present, as well as L5-S1 spondylosis with disc height loss and vacuum disc. Minimal retrolisthesis of L1 and L2 is unc hanged.. IMPRESSION: Previous L4-5 fusion. Increasing anterolisthesis of L4 on L5. Report Dictated By: Nitin Mcfarland MD at 08/30/2018 12:52 PM Report E-Signed By: Nitin Mcfarland MD at 08/30/2018 12:55 PM WSN:[id number] ED Course/Re-evaluation ED Course When at this time will be to treat symptoms with oral pain medication and muscle relaxant also obtain x-ray of the lumbar spine. 08/30/2018 2:23:44 pm having a difficult time flexing at the hips secondary to pain. We have given oral Percocet as well as oral muscle relaxant without relief. This was followed by 30 mg of IM Toradol and 60 mg of IM Norflex we are attempting to ambulate 08/30/2018 2:44:11 pm patient was able to ambulate wishes to go home at this time. Decision to Disposition Date: Aug 30, 2018 Decision to Disposition Time: 14:44 Depart Departure Latest Vital Signs Vital Signs Date Time Temp Pulse Resp B/P (MAP) Pulse Ox O2 Delivery O2 Flow Rate FiO2 08/30/18 13:04 98.2 08/30/18 13:00 137/79 (98) 08/30/18 12:59 63 90 08/30/18 12:07 20 Room Air Impression: Primary Impression: Back pain Condition: Improved Disposition: HOME OR SELF-CARE Referrals: CARL ENRIQUEZ MD (PCP) CHARLOTTE COOPER MD Call this week to arrange follow up for next available appointment New Scripts Docusate Sodium (COLACE) 100 Mg Capsule 100 MG PO QDAY, #10 CAPSULE 0 Refills Take this medicine to prevent constipation while you are on the Percocet. Prov: GREER SIBLEY MD 08/30/18 Methocarbamol (ROBAXIN-750) 750 Mg Tablet 1500 MG PO QID for Muscle Relaxant, #30 TAB 0 Refills Prov: GREER SIBLEY MD 08/30/18 Oxycodone Hcl/Acetaminophen (PERCOCET 5-325 MG TABLET) 1 Each Tablet 1 EACH PO Q4H for PAIN, #20 TAB 0 Refills Prov: GREER SIBLEY MD 08/30/18 Patient Instructions: Acute Low Back Pain (ED) Additional Instructions: Findings of your x-ray showed a Saturday pedicle screw fusion L4 and L5 with L4 laminectomy, metallic structures are intact there was increasing anterior listhesis between L4 and L5 measuring about 1 cm previously noted to be about 2- 3 mm. Take your medications as prescribed. Follow-up with Dr. Cooper at next available appointment please call Saturday morning for an appointment time At any point your symptoms worsen or he develop new symptoms such as fever, abdominal pain or urinary incontinence you should return to the emergency department for reevaluation Problem Qualifiers Primary Impression: Back pain Back pain location: low back pain Chronicity: acute Back pain laterality: bilateral Sciatica presence: without sciatica Qualified Codes: M54.5 - Low back pain GREER SIBLEY MD Aug 30, 2018 12:03
[2018-08-30] MEDS ORDERED: oxyCODON/ACET (*)5/325MG (CII) 1 TAB TAB PO ONE (12:20)
[2018-08-30 13:00] VITALS: BP 137/79
--- NOTE | 2018-08-30 13:00 | RADIOLOGY IMAGING REPORT ---
FACILITY: [facility] - [place] PATIENT NAME: Valente Carrillo : 1935 MR: [id number] V: [id number] EXAM DATE: ORDERING PHYSICIAN: GREER SIBLEY TECHNOLOGIST: Location: [facility] [place] Patient: Valente Carrillo : 1935 Visit/Account:[id number] Date of Sevice: 08/30/2018 EXAMINATION: Lumbar spine, 2 views 08/30/2018 12:21 PM HISTORY: Pain. Prior surgery. COMPARISON: 06/27/2017 FINDINGS: 5 nonrib-bearing lumbar vertebral levels. Previous madalyn and pedicle screw fusion at L4-5 wi th L4 laminectomy. Metallic fixation is intact. Increasing L4-5 anterolisthesis, measuring about 1 cm , previously 2 to 3 mm. 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 Th oracolumbar degenerative changes present, as well as L5-S1 spondylosis with disc height loss and vacu um disc. Minimal retrolisthesis of L1 and L2 is unchanged.. IMPRESSION: Previous L4-5 fusion. Increasing anterolisthesis of L4 on L5. Report Dictated By: Nitin Mcfarland MD at 08/30/2018 12:52 PM Report E-Signed By: Nitin Mcfarland MD at 08/30/2018 12:55 PM WSN:[id number]
[2018-08-30] MEDS ORDERED: METH-543 PO (13:07)
[2018-08-30] MEDS ORDERED: OXYC-865 PO (13:07)
[2018-08-30] MEDS ORDERED: DOCU-416 PO (13:16)
[2018-08-30] MEDS ORDERED: KETOROLAC 30 MG/ML VIAL IM ONE (13:25)
[2018-08-30] MEDS ORDERED: ORPHENADRINE 60MG/2ML INJ IM ONE (13:25)
[2018-08-30] MEDS ORDERED: MORPHINE 4 MG/ML SDV IM ONE (14:20)
== END 2018-08-30 14:53 | disposition home or self-care (01) ==
LOC: ER 12:04
DX: M54.5 Low back pain (principal)
CPT/HCPCS: 72100; 96372; 99284; A9270; J1885; J2360

== ENCOUNTER → 2018-09-02 | Outpatient (CLI) | payer MEDICARE ==
[2017-06-27 10:41] VITALS: BMI 24.8
[~2018-09-02] MED LIST changes: +FLUT16SP19 NS; +LEVO750T44 PO; +METH-543 PO; +PANT40TA65 PO
--- NOTE | 2018-09-02 14:15 | RADIOLOGY IMAGING REPORT ---
FACILITY: [facility] PATIENT NAME: Valente Carrillo : 1935 MR: [id number] V: [id number] EXAM DATE: ORDERING PHYSICIAN: CARL ENRIQUEZ TECHNOLOGIST: Location: [facility] Patient: Valente Carrillo : 1935 Visit/Account:[id number] Date of Sevice: 09/02/2018 CHEST PA LAT HISTORY: Cough COMPARISON: 02/21/2017 FINDINGS: Frontal and lateral views chest obtained. Lines/tubes: None. Lungs/pleura: Mildly hyperinflated suggesting air trapping. Right lung grossly clear. Patchy airspa ce infiltrate left lower lobe. No evidence of pleural effusion or pneumothorax. No evidence of will estive failure. Cardiomediastinum and will: Tortuosity of the mid to distal descending thoracic aorta, unchanged. Bones/soft tissues: Degenerative changes visualized thoracolumbar spine. Additional findings: None. IMPRESSION: Left lower lobe pulmonary infiltrate most suspicious for pneumonia. Continued chest x-ray follow-up recommended to ensure clearing. Report Dictated By: Blaze Campbell MD at 09/02/2018 2:07 PM Report E-Signed By: Blaze Campbell MD at 09/02/2018 2:09 PM WSN:[email or web address]
== END ==
LOC: RAD 10:08
PROVIDERS: ATTEND Emergency Medicine
DX: R05 Cough (principal)
CPT/HCPCS: 71046

== ENCOUNTER 2018-09-09 19:03 | Emergency (ER) | payer MEDICARE ==
[2017-06-27 10:41] VITALS: Wt 86.2 kg
[~2018-09-09 19:03] MED LIST changes: +LIDO1ADH TP
[2018-09-09] MEDS ORDERED: LIDOCAINE INJ ONE (20:35)
[2018-09-09] MEDS ORDERED: BUPIVACAINE 0.5% INJ 50ML VIAL INFIL ONE (20:35)
--- NOTE | 2018-09-09 22:03 | RADIOLOGY IMAGING REPORT ---
FACILITY: [facility] PATIENT NAME: Valente Carrillo : 1935 MR: [id number] V: [id number] EXAM DATE: ORDERING PHYSICIAN: GREER RODRIGUEZ TECHNOLOGIST: [place] [facility] [place] Patient: Valente Carrillo : 1935 Visit/Account:[id number] Date of Sevice: 09/09/2018 2 VIEWS CHEST INDICATION: Hypoxia. Left-sided back pain. COMPARISON: 09/02/2018. FINDINGS: Cardiomediastinal silhouette and pulmonary vessels within normal limits. Patchy hazy opacities seen in the left lower lobe, not appreciated previously. The remaining lung fi elds are clear. There is no pneumothorax or pleural effusion. No discrete nodule. Upper abdomen is unremarkable. No acute bony abnormality. IMPRESSION: 1. Patchy hazy opacities seen in left lower lobe mainly secondary to early pneumonia or atelectasis. Suggest follow-up films to assess for clearing or other etiologies. Report Dictated By: Dat Gonzalez at 09/09/2018 9:55 PM Report E-Signed By: Dat Gonzalez at 09/09/2018 9:58 PM WSN:[id number]
[2018-09-09] MEDS ORDERED: IOPAMIDOL 76% 100 ML INFUS BTL 100 ML ONE (22:10)
[2018-09-09] MEDS ORDERED: NS(*) 0.9% 50 ML BAG 50 ML ONE (22:10)
--- NOTE | 2018-09-09 22:22 | ER Report ---
History and Physical Time Seen By MD: 19:20 Hx. of Stated Complaint: UPPER/MIDDLE BACK PAIN. WAS HERE SAT FOR IT. WAS ONLY ON LEFT SIDE AND NOW IT'S ALL OVER THE BACK HPI/ROS CHIEF COMPLAINT: Back pain HISTORY OF PRESENT ILLNESS: 82-year-old male presents with chief complaint of back pain. Pain is left thoracic. Pain is moderate in intensity, worse with certain movements. Pain started this afternoon while he was sitting. Patient does not know of any injuries. He states he has had problems with back pain multiple times, and is status post lumbar laminectomy. He has had pain primarily in the lumbar region though occasionally in thoracic in the past. He states that he believes this is similar to when he's had no past. He has multiple home medications for pain, muscle relaxation, however these have not benefited him. Patient has had no chest pain. He does state that he has had mild dyspnea while walking stairs over the past few weeks. He is had no recent travel, injuries, leg pain or swelling. 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 He was on xarelto for some time. He does not know exactly how long. He has not been on recent anticoagulant. He has had no cough, fever, chills REVIEW OF SYSTEMS: Constitutional: No fever, no chills. Eyes: No discharge. ENT: No sore throat. Cardiovascular: No chest pain, no palpitations. Respiratory: above Gastrointestinal: No abdominal pain, no vomiting. Genitourinary: no dysuria Musculoskeletal: above Skin: No rashes. Neurological: No headache. Remainder of the 14 system rev: Yes Allergies: Coded Allergies: corn (Verified Allergy, Severe, ANAPHYLAXIS, 09/09/18) Uncoded Allergies: CATS (Allergy, Mild, 04/27/08) Home Meds Active Scripts Azithromycin (Z-PACK) 250 Mg Tablet, 1 TAB PO QDAY for 4 Days, #4 TAB 0 Refills Prov:GREER RODRIGUEZ MD 09/10/18 Lidocaine/Menthol (LIDOPATCH) 1 Each Adh..patch, 1 EACH TP DAILY, #10 PATCH.24H Apply for up to 12 hours. Max 1 patch per 24 hours. Prov:CARL ENRIQUEZ MD 09/08/18 Docusate Sodium (COLACE) 100 Mg Capsule, 100 MG PO QDAY, #10 CAPSULE 0 Refills Take this medicine to prevent constipation while you are on the Percocet. Prov:GREER SIBLEY MD 08/30/18 Umeclidinium Brm/Vilanterol Tr (Anoro Ellipta 62.5-25 Mcg INH) 1 Each Disk.w.dev, 1 INHALATION INH DAILY, #1 INHALER Prov:CARL ENRIQUEZ MD 07/29/18 Pravastatin Sodium (PRAVASTATIN SODIUM) 40 Mg Tablet, 40 MG PO QDAY, #90 TAB 3 Refills Prov:CARL ENRIQUEZ MD 03/12/18 Diclofenac Sodium 1% Gel (VOLTAREN 1% GEL) 100 Gm Gel..gram., 4 GM TOP QID, #1 TUBE 3 Refills 4 grams four times a day for left knee and 2 grams four times a day for left thumb joint Prov:CARL ENRIQUEZ MD 01/23/18 Albuterol Sulfate 90 Mcg/Act (PROAIR HFA 90 MCG/ACT) 8.5 Gm Hfa.aer.ad, 2 PUFF IH Q4-6H, #1 INHALER Prov:CARL ENRIQUEZ MD 03/25/17 Reported Medications Diazepam (VALIUM) 5 Mg Tablet, 5 MG PO QHS, #5 TAB 09/08/18 Tramadol Hcl (TRAMADOL HCL) 50 Mg Tablet, 50-100 MG PO Q6H, TAB 09/08/18 [Lutein/[place]-3] No Conflict Check, 1 CAP PO DAILY 08/22/17 Glucosamine Sulfate 2KCL (GLUCOSAMINE) 1,000 Mg Tablet, 1000 MG PO BID 08/22/17 Psyllium Husk (Metamucil) Unknown Strength Capsule 01/15/17 Multivitamin (MEN'S MULTI-VITAMIN) 1 Each Tablet, 1 EACH PO DAILY 01/15/17 Calcium Citrate/Vitamin D3 (CALCIUM CITRATE - VIT D CAPLET) 1 Each Tablet, 1 EACH PO BID 11/09/13 Bimatoprost (LUMIGAN) 2.5 Ml Drops, 0.01 ML OP DAILY 11/08/13 Discontinued Scripts Levofloxacin 750 Mg Tab (LEVAQUIN 750 MG TAB) 750 Mg Tablet, 750 MG PO DAILY, #5 TAB 0 Refills Prov:CARL ENRIQUEZ MD 09/02/18 Methocarbamol (ROBAXIN-750) 750 Mg Tablet, 1500 MG PO QID for Muscle Relaxant, #30 TAB 0 Refills Prov:CARL ENRIQUEZ MD 09/02/18 Oxycodone Hcl/Acetaminophen (PERCOCET 5-325 MG TABLET) 1 Each Tablet, 1 EACH PO Q4H for PAIN, #30 TAB 0 Refills Prov:CARL ENRIQUEZ MD 09/02/18 Reviewed Nurses Notes: Yes Old Medical Records Reviewed: Yes Hx Smoking: No Smoking Status: Never Smoker Exposure to Second Hand Smoke?: No Hx Substance Use Disorder: No Hx Alcohol Use: Yes Constitutional Vital Sign - Last 24 Hours 09/09/18 09/09/18 09/09/18 09/09/18 19:03 19:15 19:18 19:30 Pulse ??? 97 Resp 22 B/P (MAP) 158/75 (102) 137/62 (87) Pulse Ox 88 09/09/18 09/09/18 09/09/18 09/09/18 19:33 19:35 19:40 19:48 Temp 98.8 Pulse 86 101 99 Resp 35 14 27 B/P (MAP) 137/62 Pulse Ox 91 91 91 O2 Delivery Nasal Cannula O2 Flow Rate 2.0 09/09/18 09/09/18 09/09/18 09/09/18 20:00 20:03 20:18 20:30 Pulse 76 92 Resp 21 23 B/P (MAP) 132/73 (92) 133/83 (100) Pulse Ox 91 92 09/09/18 09/09/18 09/09/18 09/09/18 20:33 20:48 20:53 21:00 Pulse 57 92 92 Resp 15 30 25 B/P (MAP) 132/75 (94) Pulse Ox 91 92 91 09/09/18 09/09/18 09/09/18 09/09/18 21:08 21:23 21:34 21:38 Pulse 91 88 85 Resp 26 25 26 B/P (MAP) 144/90 (108) Pulse Ox 92 92 94 09/09/18 09/09/18 09/09/18 09/09/18 21:53 22:00 22:08 22:23 Pulse 72 80 75 Resp 27 7 24 B/P (MAP) 149/88 (108) Pulse Ox 93 94 95 09/09/18 09/09/18 09/09/18 09/09/18 22:30 22:38 22:43 22:58 Pulse 87 88 89 Resp 25 25 24 B/P (MAP) 131/77 (95) Pulse Ox 94 94 94 09/09/18 09/09/18 09/09/18 09/09/18 23:00 23:13 23:23 23:28 Pulse ??? 77 Resp 24 B/P (MAP) 143/93 (110) 154/99 (117) Pulse Ox 96 09/09/18 09/09/18 09/09/18 09/10/18 23:30 23:43 23:58 00:00 Pulse 72 76 Resp 22 25 B/P (MAP) 136/76 (96) 133/75 (94) Pulse Ox 96 95 09/10/18 09/10/18 00:13 00:30 Pulse 78 Resp 26 B/P (MAP) 134/82 (99) Pulse Ox 96 Physical Exam General Appearance: The patient is alert, has no immediate need for airway pr otection and no signs of toxicity. Eyes: Pupils equal and round no pallor or injection. ENT, Mouth: Mucous membranes are moist. Respiratory: There are no retractions, lungs are clear to auscultation. Cardiovascular: Regular rate and rhythm. no m/r/g Gastrointestinal: Abdomen is soft and non tender, no masses, bowel sounds normal. Neurological: alert, no gross deficits Skin: Warm and dry, no rashes. Musculoskeletal: Extremities are nontender, nonswollen and have full range of motion. Pt has ttp left rhomboid that completely reproduces pain, with palpable muscle cord DIFFERENTIAL DIAGNOSIS: After history and physical exam differential diagnosis was considered for shortness of breath including but not limited to pulmonary infectious process, COPD, asthma, pulmonary embolus and congestive heart failure, acs. muscle spasm, thoracic fracture, or other emergnet etiology. Medical Decision Making Data Points Result Diagram: 09/09/18221009/09/182210 Laboratory Hematology Test 09/09/18 22:11 Red Blood Count 4.96 M/uL (4.00-5.60) Mean Corpuscular Volume 90.6 fL (80.0-96.0) Mean Corpuscular Hemoglobin 31.5 pg (26.0-33.0) Mean Corpuscular Hemoglobin Concent 34.8 g/dL (32.0-36.0) Red Cell Distribution Width 13.9 % (11.5-14.5) Mean Platelet Volume 8.6 fL (7.2-11.1) Neutrophils (%) (Auto) 71.0 % (39.4-72.5) Lymphocytes (%) (Auto) 18.0 % (17.6-49.6) Monocytes (%) (Auto) 10.0 % (4.1-12.4) Eosinophils (%) (Auto) 0.0 % (0.4-6.7) Basophils (%) (Auto) 0.0 % (0.3-1.4) Nucleated RBC Relative Count (auto) /100WBC Neutrophils # (Auto) 71.0 K/uL (2.0-7.4) Lymphocytes # (Auto) 18.0 K/uL (1.3-3.6) Monocytes # (Auto) 10.0 K/uL (0.3-1.0) Eosinophils # (Auto) 0.0 K/uL (0.0-0.5) Basophils # (Auto) 0.0 K/uL (0.0-0.1) Nucleated RBC Absolute Count (auto) K/uL Neutrophils % (Manual) 71 % (39.4-72.5) Band Neutrophils % 1 % Lymphocytes % (Manual) 18 % (17.6-49.6) Monocytes % (Manual) 10 % (4.1-12.4) Eosinophils % (Manual) 0 % (0.4-6.7) Basophils % (Manual) 0 % (0.3-1.4) Peripheral Blood Smear Yes Y/N Sodium Level 137 mmol/L (137-145) Potassium Level 5.0 mmol/L (3.5-5.0) Chloride Level 101 mmol/L (98-107) Carbon Dioxide Level 24 mmol/L (22-30) Blood Urea Nitrogen 21 mg/dl (9-21) Creatinine 0.90 mg/dl (0.66-1.25) Glomerular Filtration Rate Calc > 60.0 Random Glucose 137 mg/dl (75-110) Calcium Level 9.0 mg/dl (8.4-10.2) Chemistry Test 09/09/18 22:11 White Blood Count 9.2 k/uL (4.5-11.0) Red Blood Count 4.96 M/uL (4.00-5.60) Hemoglobin 15.6 g/dL (14.0-18.0) Hematocrit 45.0 % (42.0-52.0) Mean Corpuscular Volume 90.6 fL (80.0-96.0) Mean Corpuscular Hemoglobin 31.5 pg (26.0-33.0) Mean Corpuscular Hemoglobin Concent 34.8 g/dL (32.0-36.0) Red Cell Distribution Width 13.9 % (11.5-14.5) Platelet Count 167 K/uL (150-450) Mean Platelet Volume 8.6 fL (7.2-11.1) Neutrophils (%) (Auto) 71.0 % (39.4-72.5) Lymphocytes (%) (Auto) 18.0 % (17.6-49.6) Monocytes (%) (Auto) 10.0 % (4.1-12.4) Eosinophils (%) (Auto) 0.0 % (0.4-6.7) Basophils (%) (Auto) 0.0 % (0.3-1.4) Nucleated RBC Relative Count (auto) /100WBC Neutrophils # (Auto) 71.0 K/uL (2.0-7.4) Lymphocytes # (Auto) 18.0 K/uL (1.3-3.6) Monocytes # (Auto) 10.0 K/uL (0.3-1.0) Eosinophils # (Auto) 0.0 K/uL (0.0-0.5) Basophils # (Auto) 0.0 K/uL (0.0-0.1) Nucleated RBC Absolute Count (auto) K/uL Neutrophils % (Manual) 71 % (39.4-72.5) Band Neutrophils % 1 % Lymphocytes % (Manual) 18 % (17.6-49.6) Monocytes % (Manual) 10 % (4.1-12.4) Eosinophils % (Manual) 0 % (0.4-6.7) Basophils % (Manual) 0 % (0.3-1.4) Peripheral Blood Smear Yes Y/N Glomerular Filtration Rate Calc > 60.0 Calcium Level 9.0 mg/dl (8.4-10.2) ED Course/Re-evaluation ED Course 82-year-old male presents with left thoracic back pain. Patient feels that this is muscular and notes that it changes with movement. However, upon further evaluation, patient admits to dyspnea on exertion especially upstairs, and has hypoxia to 89-90% on room air. Therefore, I evaluated for pneumonia and PE. CT is consistent with bilateral lower lobe pneumonia without evidence of PE. Patient is comfortable in the emergency department for outpatient management. He does not have high-risk features requiring admission, however he understands strict return precautions if he worsens. He understands the need to follow up to ensure resolution of symptoms, and ultimately of chest xray. We also performed trigger point injection which resolved the back pain. Procedure I performed trigger point injection; pt verbally consented. After sterile preparation, I placed 27 g needle at 3 trigger points left rhomboid and injected 6mL of 50% mixture of 1% lidocaine and 0.5 % bupivicaine. Pt tolerated well, no complications. Decision to Disposition Date: Sep 10, 2018 Decision to Disposition Time: 00:22 Depart Departure Latest Vital Signs Vital Signs Date Time Temp Pulse Resp B/P (MAP) Pulse Ox O2 Delivery O2 Flow Rate FiO2 09/10/18 00:30 134/82 (99) 09/10/18 00:13 78 26 96 09/09/18 19:40 2.0 09/09/18 19:35 98.8 Nasal Cannula Impression: Primary Impression: Pneumonia Additional Impression: Back pain Condition: Improved Disposition: HOME OR SELF-CARE Referrals: CARL ENRIQUEZ MD (PCP) 5 Days New Scripts Azithromycin (Z-PACK) 250 Mg Tablet 1 TAB PO QDAY for 4 Days, #4 TAB 0 Refills Prov: GREER RODRIGUEZ MD 09/10/18 Patient Instructions: Bacterial Pneumonia (ED) Additional Instructions: As we discussed, please follow up with your primary doctor within 1 week for re- evaluation, then schedule repeat xray in 6 weeks to make sure symptoms have cleared. Please return immediately for worsening symptoms, increased difficulty breathing, chest pain, or any concerns. Problem Qualifiers Primary Impression: Pneumonia Pneumonia type: due to unspecified organism Laterality: bilateral Lung location: lower lobe of lung Qualified Codes: J18.1 - Lobar pneumonia, unspecified organism Additional Impression: Back pain Back pain location: thoracic back pain Chronicity: acute Back pain laterality: left Qualified Codes: M54.6 - Pain in thoracic spine GREER RODRIGUEZ MD Sep 09, 2018 22:22
--- NOTE | 2018-09-10 00:08 | RADIOLOGY IMAGING REPORT ---
[place] [facility] [place] Valente Carrillo : 1935 MR: [id number] V: [id number] EXAM DATE: ORDERING PHYSICIAN: GREER RODRIGUEZ TECHNOLOGIST: Location: [facility] Patient: Valente Carrillo : 1935 Visit/Account:[id number] Date of Sevice: 09/09/2018 CT PE DATE: 09/09/2018 11:54 PM INDICATION: Dyspnea, hypoxia. COMPARISON: Same-day radiograph, chest CT 03/28/2017. TECHNIQUE: Axial CT angiogram was obtained through the chest with intravenous contrast. Sagittal an d coronal MPR and MIP coronal reformations were also generated. 75 mL isovue 370. One of the follow ing dose optimization techniques was utilized in the performance of this exam: Automated exposure con trol; adjustment of the mA and/or kV according to the patient's size; or use of an iterative reconst ruction technique. Specific details can be referenced in the facility's radiology CT exam operationa l policy. FINDINGS: Thyroid / Thoracic Inlet: No visualized thyroid nodule or supraclavicular lymphadenopathy. Pulmonary Arteries: Borderline enlarged central pulmonary arteries. No apparent pulmonary embolism. Heart and Aorta: Upper limit normal size heart with no pericardial effusion. Nonaneurysmal thoracic aorta with mild atherosclerosis. Mediastinum and Venus: Mildly enlarged mediastinal lymph nodes are likely reactive. Partially calcifi ed nodes are likely related to remote granulomatous infection. Lungs and Pleura: Left greater than right lower lobe patchy and reticular opacification, with lesser involvement in the lingula and base of the right middle lobe. No pleural effusion or pneumothorax. Breast and Axilla: No axillary lymphadenopathy. Upper Abdomen: No visualized acute abnormality. Calcified granulomas in the spleen. Nonobstructing calculus in the superior pole of the left kidney. Bones and Soft Tissues: No acute abnormality or suspicious lesion. IMPRESSION: 1. No apparent pulmonary embolism. 2. Bilateral lower lung opacities with greatest involvement in the left lower lobe, likely infectiou s/inflammatory. Aspiration is a consideration in the appropriate setting. Report Dictated By: Oliver Tracy MD at 09/09/2018 11:54 PM Report E-Signed By: Oliver Tracy MD at 09/10/2018 12:02 AM WSN:[id number]
[2018-09-10 00:25] LABS: PLATELET COUNT, AUTOMATED 167 K/uL (150-450)
[2018-09-10] MEDS ORDERED: AZITHROMYCIN 250 MG TAB PO ONE (00:25)
[2018-09-10] MEDS ORDERED: AZIT-17 PO (00:26)
[2018-09-10 00:30] VITALS: BP 134/82
[2018-09-11] MEDS ORDERED: UMEC1DIS INH (10:40)
== END 2018-09-10 00:44 | disposition home or self-care (01) ==
LOC: ER 19:59
DX: J18.1 Lobar pneumonia, unspecified organism (principal); M54.6 Pain in thoracic spine
CPT/HCPCS: 20552; 71046; 71275; 85025; 99284; J7050; Q0144; Q9967; 82310; 82374; 82435; 82565; 82947; 84132; 84295; 84520

== ENCOUNTER 2018-09-11 07:42 | Inpatient (IN) | payer MEDICARE ==
[~2018-09-11] VITALS: Ht 182.9 cm; Wt 91.6 kg
[~2018-09-11 07:42] MED LIST changes: -CEF300 PO; -DOXY-181 PO; -MELO-205 PO
--- NOTE | 2018-09-11 07:45 | ER Report ---
History and Physical Time Seen By MD: 07:43 HPI/ROS CHIEF COMPLAINT: Fall HISTORY OF PRESENT ILLNESS: Patient was recently in the medical office on September 02 and was found to have a left lower lobe infiltrate and was started on Levaquin. Patient was subsequently seen in the emergency department on September 09 for complaints of back pain. He denied having any injuries at that time. States that he has a prior history of lumbar laminectomy. 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 At this visit on the patient was evaluated and had a CT scan of the chest to rule out pulmonary embolism. CT scan however did show bilateral pneumonia. He had no significant risk factors and was treated as an outpatient with Zithromax. His back pain was managed with a trigger point injection. Patient states that he was trying to get back into bed last evening when he slipped and fell between the bed and the wall. He states that he ended up sustaining her most of the night until he was able to crawl to the telephone this morning and call for help. Patient lives by himself. Patient states that he has upper thoracic back pain. He also reports he is still having a cough but denies any fevers. He denies abdominal pain. He denies headache. He does report some neck pain as well. REVIEW OF SYSTEMS: Constitutional: No fever, no chills. Eyes: No discharge. ENT: No sore throat. Cardiovascular: No chest pain, no palpitations. Respiratory: Cough, no shortness of breath Gastrointestinal: No abdominal pain, no vomiting. Genitourinary: No hematuria. Musculoskeletal: Thoracic back pain, neck pain Skin: Abrasions bilateral knees Neurological: No headache. Allergies: Coded Allergies: corn (Verified Allergy, Severe, ANAPHYLAXIS, 09/09/18) Uncoded Allergies: CATS (Allergy, Mild, 04/27/08) Home Meds Active Scripts Umeclidinium Brm/Vilanterol Tr (Anoro Ellipta 62.5-25 Mcg INH) 1 Each Disk.w.dev, 1 INHALATION INH DAILY, #1 INHALER 11 Refills Prov:CARL ENRIQUEZ MD 09/11/18 Azithromycin (Z-PACK) 250 Mg Tablet, 1 TAB PO QDAY for 4 Days, #4 TAB 0 Refills Prov:GREER RODRIGUEZ MD 09/10/18 Lidocaine/Menthol (LIDOPATCH) 1 Each Adh..patch, 1 EACH TP DAILY, #10 PATCH.24H Apply for up to 12 hours. Max 1 patch per 24 hours. Prov:CARL ENRIQUEZ MD 09/08/18 Docusate Sodium (COLACE) 100 Mg Capsule, 100 MG PO QDAY, #10 CAPSULE 0 Refills Take this medicine to prevent constipation while you are on the Percocet. Prov:GREER SIBLEY MD 08/30/18 Pravastatin Sodium (PRAVASTATIN SODIUM) 40 Mg Tablet, 40 MG PO QDAY, #90 TAB 3 Refills Prov:CARL ENRIQUEZ MD 03/12/18 Diclofenac Sodium 1% Gel (VOLTAREN 1% GEL) 100 Gm Gel..gram., 4 GM TOP QID, #1 TUBE 3 Refills 4 grams four times a day for left knee and 2 grams four times a day for left thumb joint Prov:CARL ENRIQUEZ MD 01/23/18 Albuterol Sulfate 90 Mcg/Act (PROAIR HFA 90 MCG/ACT) 8.5 Gm Hfa.aer.ad, 2 PUFF IH Q4-6H, #1 INHALER Prov:CARL ENRIQUEZ MD 03/25/17 Reported Medications Diazepam (VALIUM) 5 Mg Tablet, 5 MG PO QHS, #5 TAB 09/08/18 Tramadol Hcl (TRAMADOL HCL) 50 Mg Tablet, 50-100 MG PO Q6H, TAB 09/08/18 [Lutein/[place]-3] No Conflict Check, 1 CAP PO DAILY 08/22/17 Glucosamine Sulfate 2KCL (GLUCOSAMINE) 1,000 Mg Tablet, 1000 MG PO BID 08/22/17 Psyllium Husk (Metamucil) Unknown Strength Capsule 01/15/17 Multivitamin (MEN'S MULTI-VITAMIN) 1 Each Tablet, 1 EACH PO DAILY 01/15/17 Calcium Citrate/Vitamin D3 (CALCIUM CITRATE - VIT D CAPLET) 1 Each Tablet, 1 EACH PO BID 11/09/13 Bimatoprost (LUMIGAN) 2.5 Ml Drops, 0.01 ML OP DAILY 11/08/13 Discontinued Scripts Levofloxacin 750 Mg Tab (LEVAQUIN 750 MG TAB) 750 Mg Tablet, 750 MG PO DAILY, #5 TAB 0 Refills Prov:CARL ENRIQUEZ MD 09/02/18 Methocarbamol (ROBAXIN-750) 750 Mg Tablet, 1500 MG PO QID for Muscle Relaxant, #30 TAB 0 Refills Prov:CARL ENRIQUEZ MD 09/02/18 Oxycodone Hcl/Acetaminophen (PERCOCET 5-325 MG TABLET) 1 Each Tablet, 1 EACH PO Q4H for PAIN, #30 TAB 0 Refills Prov:CARL ENRIQUEZ MD 09/02/18 Past Medical/Surgical History Past medical history for pulmonary embolism, kidney stone, history of prostate cancer, COPD past surgical history for tonsillectomy, appendectomy, vasectomy, carpal tunnel release, laminectomy Hx Smoking: No Smoking Status: Never Smoker Exposure to Second Hand Smoke?: No Hx Substance Use Disorder: No Hx Alcohol Use: Yes Constitutional Vital Sign - Last 24 Hours 09/11/18 09/11/18 09/11/18 09/11/18 07:46 07:50 09:45 10:00 Temp 98.7 Pulse 96 81 70 Resp 18 20 19 B/P (MAP) 155/93 Pulse Ox 86 93 93 O2 Delivery Nasal Cannula O2 Flow Rate 3.0 09/11/18 09/11/18 10:15 10:30 Pulse 68 77 Resp 18 14 Pulse Ox 93 93 Physical Exam General/Constitutional: Patient is awake, alert, nontoxic; found to be hypoxic on room air at 86% Head: Normocephalic; has superficial abrasion to forehead Eyes: Conjunctival clear, Pupils are equal and reactive to light. Extraocular muscles are intact and symmetrical. Sclera are clear and anicteric. Ears:External canals are clear. Tympanic membranes are clear with normal landmarks and light reflex. Nares: No rhinorrhea or bleeding. Turbinates are pink and moist. Oropharyngeal: Mucous membranes are dry. There is no pharyngeal erythema or exudate. There are no palatal petechiae. Uvula is midline and symmetrical. Neck: In cervical collar Cardiovascular: Heart is regular rate and rhythm without audible murmurs, rubs o r gallops. Pulmonary: Lungs are clear to auscultation bilaterally. There are no wheezes, rales, or rhonchi. Chest rise is symmetrical Abdomen: Soft, nontender, no guarding or peritoneal signs. Extremities: No gross deformities, No peripheral cyanosis. Able to move all 4 extremities. Neuro: Alert and oriented X3, Skin: The patient for head, abrasion bilateral knees. Medical Decision Making Data Points Result Diagram: 09/11/18 0735 09/11/18 0735 Laboratory Hematology Test 09/11/18 07:35 09/11/18 09:26 Red Blood Count 4.91 M/uL (4.00-5.60) Mean Corpuscular Volume 89.6 fL (80.0-96.0) Mean Corpuscular Hemoglobin 31.2 pg (26.0-33.0) Mean Corpuscular Hemoglobin Concent 34.8 g/dL (32.0-36.0) Red Cell Distribution Width 14.1 % (11.5-14.5) Mean Platelet Volume 7.9 fL (7.2-11.1) Neutrophils (%) (Auto) 64.8 % (39.4-72.5) Lymphocytes (%) (Auto) 5.0 % (17.6-49.6) Monocytes (%) (Auto) 30.1 % (4.1-12.4) Eosinophils (%) (Auto) 0.0 % (0.4-6.7) Basophils (%) (Auto) 0.1 % (0.3-1.4) Nucleated RBC Relative Count (auto) 0.0 /100WBC Neutrophils # (Auto) 7.4 K/uL (2.0-7.4) Lymphocytes # (Auto) 0.6 K/uL (1.3-3.6) Monocytes # (Auto) 3.4 K/uL (0.3-1.0) Eosinophils # (Auto) 0.0 K/uL (0.0-0.5) Basophils # (Auto) 0.0 K/uL (0.0-0.1) Nucleated RBC Absolute Count (auto) 0.00 K/uL Peripheral Blood Smear Yes Y/N Prothrombin Time 13.9 seconds (12.0-14.4) Prothromb Time International Ratio 1.07 Activated Partial Thromboplast Time 38 seconds (23-35) Sodium Level 137 mmol/L (137-145) Potassium Level 4.5 mmol/L (3.5-5.0) Chloride Level 98 mmol/L (98-107) Carbon Dioxide Level 24 mmol/L (22-30) Blood Urea Nitrogen 18 mg/dl (9-21) Creatinine 0.80 mg/dl (0.66-1.25) Glomerular Filtration Rate Calc > 60.0 Random Glucose 135 mg/dl (75-110) Lactate 1.1 mmol/L (0.7-2.1) Calcium Level 9.4 mg/dl (8.4-10.2) Total Bilirubin 1.5 mg/dl (0.2-1.3) Aspartate Amino Transf (AST/SGOT) 68 U/L (0-35) Alanine Aminotransferase (ALT/SGPT) 33 U/L (0-56) Alkaline Phosphatase 96 U/L (0-126) Total Creatine Kinase 1542 U/L (55-170) Troponin I 0.023 ng/ml B-Type Natriuretic Peptide 131 pg/ml (0-100) Total Protein 7.2 g/dl (6.3-8.2) Albumin 3.9 g/dl (3.5-5.0) Urine Color Yellow Urine Clarity Clear Urine pH 5.0 pH (4.8-9.5) Urine Specific [facility] 1.021 Urine Protein 30 mg/dL (NEGATIVE) Urine Glucose (UA) Negative mg/dL (NEGATIVE) Urine Ketones Negative mg/dL (NEGATIVE) Urine Blood Moderate (NEGATIVE) Urine Nitrite Negative (NEGATIVE) Urine Bilirubin Negative (NEGATIVE) Urine Urobilinogen Negative mg/dL (0.2-1.9) Urine Leukocyte Esterase Negative (NEGATIVE) Urine RBC 2 /HPF (0-2/HPF) Urine WBC 1 /HPF (0-5/HPF) Urine Squamous Epithelial Cells None /LPF (</=FEW) Urine Bacteria Few /HPF (NONE-FEW) Urine Hyaline Casts Few /LPF (NONE-FEW) Urine Mucus None /HPF (NONE-FEW) Chemistry Test 09/11/18 07:35 09/11/18 09:26 White Blood Count 11.4 k/uL (4.5-11.0) Red Blood Count 4.91 M/uL (4.00-5.60) Hemoglobin 15.3 g/dL (14.0-18.0) Hematocrit 44.0 % (42.0-52.0) Mean Corpuscular Volume 89.6 fL (80.0-96.0) Mean Corpuscular Hemoglobin 31.2 pg (26.0-33.0) Mean Corpuscular Hemoglobin Concent 34.8 g/dL (32.0-36.0) Red Cell Distribution Width 14.1 % (11.5-14.5) Platelet Count 165 K/uL (150-450) Mean Platelet Volume 7.9 fL (7.2-11.1) Neutrophils (%) (Auto) 64.8 % (39.4-72.5) Lymphocytes (%) (Auto) 5.0 % (17.6-49.6) Monocytes (%) (Auto) 30.1 % (4.1-12.4) Eosinophils (%) (Auto) 0.0 % (0.4-6.7) Basophils (%) (Auto) 0.1 % (0.3-1.4) Nucleated RBC Relative Count (auto) 0.0 /100WBC Neutrophils # (Auto) 7.4 K/uL (2.0-7.4) Lymphocytes # (Auto) 0.6 K/uL (1.3-3.6) Monocytes # (Auto) 3.4 K/uL (0.3-1.0) Eosinophils # (Auto) 0.0 K/uL (0.0-0.5) Basophils # (Auto) 0.0 K/uL (0.0-0.1) Nucleated RBC Absolute Count (auto) 0.00 K/uL Peripheral Blood Smear Yes Y/N Prothrombin Time 13.9 seconds (12.0-14.4) Prothromb Time International Ratio 1.07 Activated Partial Thromboplast Time 38 seconds (23-35) Glomerular Filtration Rate Calc > 60.0 Lactate 1.1 mmol/L (0.7-2.1) Calcium Level 9.4 mg/dl (8.4-10.2) Total Bilirubin 1.5 mg/dl (0.2-1.3) Aspartate Amino Transf (AST/SGOT) 68 U/L (0-35) Alanine Aminotransferase (ALT/SGPT) 33 U/L (0-56) Alkaline Phosphatase 96 U/L (0-126) Total Creatine Kinase 1542 U/L (55-170) Troponin I 0.023 ng/ml B-Type Natriuretic Peptide 131 pg/ml (0-100) Total Protein 7.2 g/dl (6.3-8.2) Albumin 3.9 g/dl (3.5-5.0) Urine Color Yellow Urine Clarity Clear Urine pH 5.0 pH (4.8-9.5) Urine Specific [facility] 1.021 Urine Protein 30 mg/dL (NEGATIVE) Urine Glucose (UA) Negative mg/dL (NEGATIVE) Urine Ketones Negative mg/dL (NEGATIVE) Urine Blood Moderate (NEGATIVE) Urine Nitrite Negative (NEGATIVE) Urine Bilirubin Negative (NEGATIVE) Urine Urobilinogen Negative mg/dL (0.2-1.9) Urine Leukocyte Esterase Negative (NEGATIVE) Urine RBC 2 /HPF (0-2/HPF) Urine WBC 1 /HPF (0-5/HPF) Urine Squamous Epithelial Cells None /LPF (</=FEW) Urine Bacteria Few /HPF (NONE-FEW) Urine Hyaline Casts Few /LPF (NONE-FEW) Urine Mucus None /HPF (NONE-FEW) Coagulation Test 09/11/18 07:35 Prothrombin Time 13.9 seconds Prothromb Time International Ratio 1.07 Activated Partial Thromboplast Time 38 seconds Urinalysis Test 09/11/18 09:26 Urine Color Yellow Urine Clarity Clear Urine pH 5.0 pH (4.8-9.5) Urine Specific [facility] 1.021 Urine Protein 30 mg/dL (NEGATIVE) Urine Glucose (UA) Negative mg/dL (NEGATIVE) Urine Ketones Negative mg/dL (NEGATIVE) Urine Blood Moderate (NEGATIVE) Urine Nitrite Negative (NEGATIVE) Urine Bilirubin Negative (NEGATIVE) Urine Urobilinogen Negative mg/dL (0.2-1.9) Urine Leukocyte Esterase Negative (NEGATIVE) Urine RBC 2 /HPF (0-2/HPF) Urine WBC 1 /HPF (0-5/HPF) Urine Squamous Epithelial Cells None /LPF (</=FEW) Urine Bacteria Few /HPF (NONE-FEW) Urine Hyaline Casts Few /LPF (NONE-FEW) Urine Mucus None /HPF (NONE-FEW) Microbiology Microbiology Date/Time Source Procedure Growth Status 09/11/18 08:13 Blood Peripheral Draw Blood Culture - Preliminary NO GROWTH SO FAR, SET LATE. REINCUBATED Resulted 09/11/18 08:06 Blood Peripheral Draw Blood Culture - Preliminary NO GROWTH SO FAR, SET LATE. REINCUBATED Resulted EKG/Imaging EKG Interpretation EKG shows sinus rhythm with occasional premature atrial and premature ventricular contractions. Ventricular rate 86 bpm this was compared to an EKG from May 2017 which showed at that time sinus bradycardia with a rate of 49 bpm with premature supraventricular complexes. Monitor Interpretation: Normal Sinus Rhythm Imaging ED chest x-ray PA and lateral to my view the patient appears to have a left lower lobe infiltrate best seen on the lateral view and perhaps slightly worse than the x-ray from 2 days ago. Radiology read as "clear lungs" I disagree with this interpretation. FACILITY: PATIENT NAME: Valente Carrillo : 1935 MR: [id number] V: [id number] EXAM DATE: ORDERING PHYSICIAN: GREER SIBLEY TECHNOLOGIST[place] [facility] [place] [place] Val[place] : 1935 Visit/Account:[id number] Date of Sevice: 09/11/2018 CT BRAIN NO CONTRAST Indication: Fall, unable to get up. Comparison: None. Technique: Noncontrast head CT vertex to the skull base obtained. One of the following dose optimization techniques was utilized in the performance of this exam: automated exposure control; adjustment of the mA and/or kV according to the patient's size; or use of an iterative reconstruction technique. Specific details can be referenced in the facility's radiology CT exam operational policy. Findings: Brain: The mcmahon and white matter differentiation and cortex are maintained. Bilateral caudate nuclei, lentiform nuclei, thalami mid brain abril and the cerebellum are normal. Confluent areas of decreased attenuation are seen throughout the white matter bilaterally. Incidental note of a cavum septum pellucidum is seen. Ventricles and sulci: The ventricles and sulci are symmetrically prominent. There is no abnormal extra-axial fluid collection. Paranasal sinuses:Visualized paranasal sinuses and mastoid air cells are clear. Calvarium:Bones of the skull and skull base are intact. Orbits and soft tissues: Orbits are normal. There is soft tissue swelling in the left supraorbital tissue. Impression: 1. No evidence of infarct hemorrhage mass or fracture. 2. Soft tissue contusion in left supraorbital region. 3. Age-related cerebral volume loss and small vessel ischemic change. Report Dictated By: Nitin Avelar at 09/11/2018 9:23 AM Report E-Signed By: Nitin Avelar at 09/11/2018 9:28 AM WSN:[email or web address] FACILITY: PATIENT NAME: Valente Carrillo : 1935 MR: [id number] V: [id number] EXAM DATE: [id number] ORDERING PHYSICIAN: GREER SIBLEY TECHNOLOGIST: [place] [facility] [place] Valente [place] : 1935 Visit/Account:[id number] Date of Sevice: 09/11/2018 CT VERTEBRA CERVICAL (NON CON) EXAMINATION: Cervical spine CT Additional Pertinent history: Fall. COMPARISON STUDIES: none TECHNIQUE: Axial images were obtained from the skull base through the upper thoracic spine without IV contrast administration. Coronal and sagittal reformatted images were obtained from the axial source data. One of the following dose optimization techniques was utilized in the performance of this exam: automated exposure control; adjustment of the mA and/or kV according to the patient's size; or use of an iterative reconstruction technique. Specific details can be referenced in the facility's radiology CT exam operational policy. FINDINGS: Pre-vertebral soft tissues: negative Alignment: Vertebral bodies and posterior elements demonstrate normal alignment. Vertebral bodies: Intact. Posterior elements: Intact. Disc Spaces: There is disc space narrowing with anterior osteophytes at all l evels of the cervical spine. Visualized lung / mediastinum: negative IMPRESSION: 1. No evidence of fracture or malalignment. 2. Multilevel cervical spondylosis and facet arthropathy. Report Dictated By: Nitin Avelar at 09/11/2018 9:34 AM Report E-Signed By: Nitin Avelar at 09/11/2018 9:37 AM WSN:[email or web address] FACILITY: PATIENT NAME: Valente Carrillo : 1935 MR: [id number] V: [id number] EXAM DATE: [id number] ORDERING PHYSICIAN: GREER SIBLEY TECHNOLOGIST: [place] [facility] [place] [place] Valente Carr[place] : 1935 Visit/Account:[id number] Date of Sevice: 09/11/2018 ADDENDUM #1 ADDENDUM: One of the following dose optimization techniques was utilized in the performance of this exam: automated exposure control; adjustment of the mA and/or kV according to the patient's size; or use of an iterative reconstruction technique. Specific details can be referenced in the facility's radiology CT exam operational policy. Report Dictated By: Nitin Avelar at 09/11/2018 9:37 AM Report E-Signed By: Nitin Avelar at 09/11/2018 9:[address] VERTEBRA THORACIC (NON CON) Indication: fall Comparison: None. TECHNIQUE: CT of the thoracic spine were obtained without contrast. Findings: The vertebral bodies and posterior elements are intact. There is disc space narrowing at all levels of the thoracic spine with anterior osteophytes seen. There is bony union of the T1-T2, and T2-T3 vertebral bodies. The facets are in normal alignment and intact. There is mild curvature convex right in the midthoracic spine. Paraspinal musculature is normal. Images of the mediastinum demonstrate calcified precarinal lymph nodes. Visua lized portions of the lungs are clear, with mild dependent atelectasis bilaterally. IMPRESSION: 1. No evidence of fracture or malalignment of the thoracic spine. 2. Multilevel thoracic spondylosis. 3. 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 4. Calcified lymph nodes in the mediastinum. 5. Visualized portions of the lungs are clear. Report Dictated By: Nitin Avelar at 09/11/2018 9:28 AM Report E-Signed By: Nitin Avelar at 09/11/2018 9:33 AM WSN:[email or web address] FACILITY: PATIENT NAME: Valente Carrillo : 1935 MR: [id number] V: [id number] EXAM DATE: ORDERING PHYSICIAN: GREER SIBLEY TECHNOLOGIST: [place] [facility] [place] Valente Carr[place] : 1935 Visit/Account:[id number] Date of Sevice: 09/11/2018 EXAMINATION: CT lumbar spine without IV contrast HISTORY: Fall. COMPARISON: None. TECHNIQUE: Axial images were obtained through the lumbar spine without IV contrast administration. Coronal and sagittal reformatted images were obtained from the axial source data. One of the following dose optimization techniques was utilized in the performance of this exam: Automated exposure control; adjustment of the mA and/or kV according to the patient's size; or use of an iterative reconstruction technique. Specific details can be referenced in the facility's radiology CT exam operational policy. FINDINGS: Alignment: Mild leftward curvature at the thoracolumbar junction. Grade 1 anterolisthesis at L4-5 measuring 7 mm. Vertebral bodies: Negative. Posterior elements: There is multilevel facet hypertrophy, worst in the lower lumbar spine. There is some ossification of the ligamentum flavum and between the spinous processes. Bilateral L4 laminectomies. Hardware: Posterior fusion hardware at L4-5 is well-positioned. There is abnormal lucency adjacent to the bilateral transpedicular screws at L4. The hardware is intact. Disc spaces: Severe disc space narrowing, endplate sclerosis and bony spurring at T12-L1 and L1-2. Soft tissues: Negative. Visualized retroperitoneal/abdominal structures: Atherosclerotic calcifications. IMPRESSION: 1. No acute fracture of the lumbar spine. 2. Severe degenerative disc disease at T12-L1 and L1-2, and multilevel facet arthropathy, worst in the lower lumbar spine. 3. Posterior fusion at L4-5, with loosening of the bilateral transpedicular screws at L4. The hardware is intact. 4. Degenerative levoscoliosis at the thoracolumbar junction, and grade 1 degenerative anterolisthesis at L4-5. Report Dictated By: Connie Salas MD at 09/11/2018 9:34 AM Report E-Signed By: Connie Salas MD at 09/11/2018 9:46 AM WSN:[id number] ED Course/Re-evaluation Clinical Indication for ER IV: IV Access ED Course 09/11/2018 7:58:27 am patient status post fall and unable to get up at home last evening with recent diagnosis of pneumonia treated with Levaquin and currently on Zithromax. Complaint of cervical spine pain along with thoracic s pine pain. Plan will be imaging of the head C-spine T-spine and L-spine. We'll also obtain chest x-ray to evaluate pneumonia. We'll perform cardiac workup including troponin. We'll draw a lactate and blood cultures as well. 09/11/2018 9:02:03 am chest x-ray seems to show persistent left lower lobe infiltrate. We will treat with IV Rocephin awaiting results of remaining imaging studies. 09/11/2018 9:35:27 am patient attempted to ambulate to the restroom on his own and was very unsteady fortunately nursing staff was in the room and was able to catch him before falling and return him to bed. Decision to Disposition Date: Sep 11, 2018 Decision to Disposition Time: 10:32 Depart Departure Latest Vital Signs Vital Signs Date Time Temp Pulse Resp B/P (MAP) Pulse Ox O2 Delivery O2 Flow Rate FiO2 09/11/18 10:30 77 14 93 09/11/18 07:50 3.0 09/11/18 07:46 98.7 155/93 Nasal Cannula Impression: Primary Impression: Rhabdomyolysis Additional Impressions: Pneumonia Hypoxia Gait difficulty Condition: Improved Disposition: Admitted from ER (to [facility]) Referrals: CARL ENRIQUEZ MD (PCP) Problem Qualifiers Primary Impression: Rhabdomyolysis Rhabdomyolysis type: traumatic Encounter type: initial encounter Qualified Codes: T79.6XXA - Traumatic ischemia of muscle, initial encounter Additional Impressions: Pneumonia Pneumonia type: due to unspecified organism Laterality: left Lung location: lower lobe of lung Qualified Codes: J18.1 - Lobar pneumonia, unspecified organism GREER SIBLEY MD Sep 11, 2018 07:45
[2018-09-11] MEDS ORDERED: NS(*) 0.9% 1000 ML BAG 1,000 ML IV ONE (07:55)
[2018-09-11] MEDS ORDERED: KETOROLAC 15 MG/ML VIAL IVP ONE (07:55)
[2018-09-11 08:08] LABS: PLATELET COUNT, AUTOMATED 165 K/uL (150-450)
[2018-09-11 08:14] LABS: INR 1.07
[2018-09-11] MEDS ORDERED: cefTRIAXone 1 GM VIAL IVP ONE (09:05)
--- NOTE | 2018-09-11 09:23 | EKG ---
FACILITY: [facility] - [place] PATIENT NAME: DILCIA STRONG : [id number] MR: [id number] V: [id number] EXAM DATE: ORDERING PHYSICIAN: GREER SIBLEY TECHNOLOGIST: GREGORY Test Reason : TRAUMA/ fall Blood Pressure : / mmHG Vent. Rate : 086 BPM Atrial Rate : 086 BPM P-R Int : 174 ms QRS Dur : 092 ms QT Int : 348 ms P-R-T Axes : 008 045 -04 degrees QTc Int : 416 ms Sinus rhythm with premature supraventricular complexes Decreased R wave progression anterior leads Nonspeciofic ST findings inferior leads Unusual artifact which appears to mimic pacemaker spikes Poor baseline in several leads - repeat if needed Confirmed by ANASTASIYA FUCHS ([id number]) on 09/11/2018 6:36:43 PM Referred By: MARYJO Confirmed By:ANASTASIYA FUCHS
--- NOTE | 2018-09-11 09:34 | RADIOLOGY IMAGING REPORT ---
FACILITY: [facility] PATIENT NAME: Valente Carrillo : 1935 MR: [id number] V: [id number] EXAM DATE: ORDERING PHYSICIAN: GREER SIBLEY TECHNOLOGIST: Location: [facility] [place] Patient: Valente Carrillo : 1935 Visit/Account:[id number] Date of Sevice: 09/11/2018 CT BRAIN NO CONTRAST Indication: Fall, unable to get up. Comparison: None. Technique: Noncontrast head CT vertex to the skull base obtained. One of the following dose optimizat ion techniques was utilized in the performance of this exam: automated exposure control; adjustment o f the mA and/or kV according to the patient's size; or use of an iterative reconstruction technique. Specific details can be referenced in the facility's radiology CT exam operational policy. Findings: Brain: The mcmahon and white matter differentiation and cortex are maintained. Bilateral caudate nuclei , lentiform nuclei, thalami mid brain abril and the cerebellum are normal. Confluent areas of decreas ed attenuation are seen throughout the white matter bilaterally. Incidental note of a cavum septum p ellucidum is seen. Ventricles and sulci: The ventricles and sulci are symmetrically prominent. There is no abnormal ext ra-axial fluid collection. Paranasal sinuses:Visualized paranasal sinuses and mastoid air cells are clear. Calvarium:Bones of the skull and skull base are intact. Orbits and soft tissues: Orbits are normal. There is soft tissue swelling in the left supraorbital t issue. Impression: 1. No evidence of infarct hemorrhage mass or fracture. 2. Soft tissue contusion in left supraorbital region. 3. Age-related cerebral volume loss and small vessel ischemic change. Report Dictated By: Nitin Avelar at 09/11/2018 9:23 AM Report E-Signed By: Nitin Avelar at 09/11/2018 9:28 AM WSN:[email or web address]
--- NOTE | 2018-09-11 09:39 | RADIOLOGY IMAGING REPORT ---
FACILITY: [facility] [place] PATIENT NAME: Valente Carrillo : 1935 MR: [id number] V: [id number] EXAM DATE: ORDERING PHYSICIAN: GREER SIBLEY TECHNOLOGIST: Location: [facility] Patient: Valente Carrillo : 1935 Visit/Account:[id number] Date of Sevice: 09/11/2018 ADDENDUM #1 ADDENDUM: One of the following dose optimization techniques was utilized in the performance of this exam: autom ated exposure control; adjustment of the mA and/or kV according to the patient's size; or use of an i terative reconstruction technique. Specific details can be referenced in the facility's radiology CT exam operational policy. Report Dictated By: Nitin Avelar at 09/11/2018 9:37 AM Report E-Signed By: Nitin Avelar at 09/11/2018 9:[address] VERTEBRA THORACIC (NON CON) Indication: fall Comparison: None. TECHNIQUE: CT of the thoracic spine were obtained without contrast. Findings: The vertebral bodies and posterior elements are intact. There is disc space narrowing at a ll levels of the thoracic spine with anterior osteophytes seen. There is bony union of the T1-T2, an d T2-T3 vertebral bodies. The facets are in normal alignment and intact. There is mild curvature convex right in the midthorac ic spine. Paraspinal musculature is normal. Images of the mediastinum demonstrate calcified precarinal lymph nodes. Visualized portions of the l ungs are clear, with mild dependent atelectasis bilaterally. IMPRESSION: 1. No evidence of fracture or malalignment of the thoracic spine. 2. Multilevel thoracic spondylosis. 3. 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 4. Calcified lymph nodes in the mediastinum. 5. Visualized portions of the lungs are clear. Report Dictated By: Nitin Avelar at 09/11/2018 9:28 AM Report E-Signed By: Nitin Avelar at 09/11/2018 9:33 AM WSN:[email or web address]
--- NOTE | 2018-09-11 09:40 | RADIOLOGY IMAGING REPORT ---
FACILITY: [facility] - [place] PATIENT NAME: Valente Carrillo : 1935 MR: [id number] V: [id number] EXAM DATE: ORDERING PHYSICIAN: GREER SIBLEY TECHNOLOGIST: Location: [facility] [place] Patient: Valente Carrillo : 1935 Visit/Account:[id number] Date of Sevice: 09/11/2018 CHEST PA LAT Indication: Chest Pain Comparison: Chest x-ray 09/09/2018 Findings: Lungs: Clear. Mediastinum/pulmonary vasculature: Heart size and pulmonary vasculature are normal. Bones/soft tissues: Normal. IMPRESSION: Clear lungs. Report Dictated By: Nitin Avelar at 09/11/2018 9:33 AM Report E-Signed By: Nitin Avelar at 09/11/2018 9:33 AM WSN:[email or web address]
--- NOTE | 2018-09-11 09:43 | RADIOLOGY IMAGING REPORT ---
FACILITY: [facility] - [place] PATIENT NAME: Valente Carrillo : 1935 MR: [id number] V: [id number] EXAM DATE: ORDERING PHYSICIAN: GREER SIBLEY TECHNOLOGIST: Location: [facility] Patient: Valente Carrillo : 1935 Visit/Account:[id number] Date of Sevice: 09/11/2018 CT VERTEBRA CERVICAL (NON CON) EXAMINATION: Cervical spine CT Additional Pertinent history: Fall. COMPARISON STUDIES: none TECHNIQUE: Axial images were obtained from the skull base through the upper thoracic spine without I V contrast administration. Coronal and sagittal reformatted images were obtained from the axial [facility] e data. One of the following dose optimization techniques was utilized in the performance of this exam: autom ated exposure control; adjustment of the mA and/or kV according to the patient's size; or use of an i terative reconstruction technique. Specific details can be referenced in the facility's radiology CT exam operational policy. FINDINGS: Pre-vertebral soft tissues: negative Alignment: Vertebral bodies and posterior elements demonstrate normal alignment. Vertebral bodies: Intact. Posterior elements: Intact. Disc Spaces: There is disc space narrowing with anterior osteophytes at all levels of the cervical sp ine. Visualized lung / mediastinum: negative IMPRESSION: 1. No evidence of fracture or malalignment. 2. Multilevel cervical spondylosis and facet arthropathy. Report Dictated By: Nitin Avelar at 09/11/2018 9:34 AM Report E-Signed By: Nitin Avelar at 09/11/2018 9:37 AM WSN:[email or web address]
--- NOTE | 2018-09-11 09:51 | RADIOLOGY IMAGING REPORT ---
FACILITY: [facility] PATIENT NAME: Valente Carrillo : 1935 MR: [id number] V: [id number] EXAM DATE: ORDERING PHYSICIAN: GREER SIBLEY TECHNOLOGIST: Location: [facility] [place] Patient: Valente Carrillo : 1935 Visit/Account:[id number] Date of Sevice: 09/11/2018 EXAMINATION: CT lumbar spine without IV contrast HISTORY: Fall. COMPARISON: None. TECHNIQUE: Axial images were obtained through the lumbar spine without IV contrast administration. C oronal and sagittal reformatted images were obtained from the axial source data. One of the following dose optimization techniques was utilized in the performance of this exam: Autom ated exposure control; adjustment of the mA and/or kV according to the patient's size; or use of an i terative reconstruction technique. Specific details can be referenced in the facility's radiology C T exam operational policy. FINDINGS: Alignment: Mild leftward curvature at the thoracolumbar junction. Grade 1 anterolisthesis at L4-5 me asuring 7 mm. Vertebral bodies: Negative. Posterior elements: There is multilevel facet hypertrophy, worst in the lower lumbar spine. There is some ossification of the ligamentum flavum and between the spinous processes. Bilateral L4 laminect omies. Hardware: Posterior fusion hardware at L4-5 is well-positioned. There is abnormal lucency adjacent t o the bilateral transpedicular screws at L4. The hardware is intact. Disc spaces: Severe disc space narrowing, endplate sclerosis and bony spurring at T12-L1 and L1-2. Soft tissues: Negative. Visualized retroperitoneal/abdominal structures: Atherosclerotic calcifications. IMPRESSION: 1. No acute fracture of the lumbar spine. 2. Severe degenerative disc disease at T12-L1 and L1-2, and multilevel facet arthropathy, worst in t he lower lumbar spine. 3. Posterior fusion at L4-5, with loosening of the bilateral transpedicular screws at L4. The hardw are is intact. 4. Degenerative levoscoliosis at the thoracolumbar junction, and grade 1 degenerative anterolisthesi s at L4-5. Report Dictated By: Connie Salas MD at 09/11/2018 9:34 AM Report E-Signed By: Connie Salas MD at 09/11/2018 9:46 AM WSN:[id number]
[2018-09-11] MEDS ORDERED: UMEC1DIS INH (10:40)
[2018-09-11 11:06] VITALS: BP 144/108
[2018-09-11] MEDS ORDERED: FLUSH 10 ML SYR IVP PRN (12:35)
[2018-09-11] MEDS ORDERED: ALBUTEROL 2.5 MG/3 ML NEB NEB PRN (12:35)
--- NOTE | 2018-09-11 13:05 | History & Physical ---
History of Present Illness Chief Complaint Fall History of Present Illness 82yo male with PMHx significant for previous lumbar laminectomy, PE previously on Xarelto, Prostate Ca s/p radiation seed implant, kidney stones. He reports onset of cough/congestion over a week ago. He was seen by his primary care physician and placed on oral Levaquin for suspected respiratory infection/pneumonia. He states he had some improvements, but a few days ago began having thoracic back pain. He was seen in the ER and evaluated. CT pulmonary angiogram at that time was negative for PE, but did show basilar infiltrates. He had trigger point injection and was placed on Zithromax and pain medications. He states he had initial improvement, but pain returned and he began to notice some "cloudy" thinking. He reports while getting back into bed last evening he fell between bed and wall. He spent several hours there before he was able to make it to a phone and call for help. He was evaluated in the ER and recommended for admission. History Problems: (1) AIDAN (obstructive sleep apnea) Status: Chronic (2) Periodic limb movement disorder (PLMD) Status: Chronic (3) Hyperlipidemia Status: Chronic (4) Osteopenia Status: Chronic (5) Trigeminal neuralgia Status: Chronic (6) Prostate cancer Status: Resolved (7) Erectile dysfunction Status: Chronic (8) Glaucoma Status: Chronic (9) Lumbar spondylosis Status: Chronic (10) Cervical spondylosis Status: Chronic (11) Neuropathy Status: Chronic (12) History of pulmonary embolism Status: Chronic (13) Kidney stone on left side Status: Chronic (14) History of appendectomy Status: Chronic (15) H/O laminectomy Status: Chronic (16) Cataract extraction status Status: Chronic Home Meds Active Scripts Umeclidinium Brm/Vilanterol Tr (Anoro Ellipta 62.5-25 Mcg INH) 1 Each Disk.w.dev, 1 INHALATION INH DAILY, #1 INHALER 11 Refills Prov:CARL ENRIQUEZ MD 09/11/18 Azithromycin (Z-PACK) 250 Mg Tablet, 1 TAB PO QDAY for 4 Days, #4 TAB 0 Refills Prov:GREER RODRIGUEZ MD 09/10/18 Docusate Sodium (COLACE) 100 Mg Capsule, 100 MG PO QDAY, #10 CAPSULE 0 Refills Take this medicine to prevent constipation while you are on the Percocet. Prov:GREER SIBLEY MD 08/30/18 Diclofenac Sodium 1% Gel (VOLTAREN 1% GEL) 100 Gm Gel..gram., 4 GM TOP QID, #1 TUBE 3 Refills 4 grams four times a day for left knee and 2 grams four times a day for left thumb joint Prov:CARL ENRIQUEZ MD 01/23/18 Albuterol Sulfate 90 Mcg/Act (PROAIR HFA 90 MCG/ACT) 8.5 Gm Hfa.aer.ad, 2 PUFF IH Q4-6H, #1 INHALER Prov:CARL ENRIQUEZ MD 03/25/17 Reported Medications Diazepam (VALIUM) 5 Mg Tablet, 5 MG PO QHS, #5 TAB 09/08/18 Tramadol Hcl (TRAMADOL HCL) 50 Mg Tablet, 50-100 MG PO Q6H, TAB 09/08/18 [Lutein/Lovilia-3] No Conflict Check, 1 CAP PO DAILY 08/22/17 Glucosamine Sulfate 2KCL (GLUCOSAMINE) 1,000 Mg Tablet, 1000 MG PO BID 08/22/17 Psyllium Husk (Metamucil) Unknown Strength Capsule 01/15/17 Multivitamin (MEN'S MULTI-VITAMIN) 1 Each Tablet, 1 EACH PO DAILY 01/15/17 Calcium Citrate/Vitamin D3 (CALCIUM CITRATE - VIT D CAPLET) 1 Each Tablet, 1 EACH PO BID 11/09/13 Bimatoprost (LUMIGAN) 2.5 Ml Drops, 0.01 ML OP DAILY 11/08/13 Discontinued Scripts Lidocaine/Menthol (LIDOPATCH) 1 Each Adh..patch, 1 EACH TP DAILY, #10 PATCH.24H Apply for up to 12 hours. Max 1 patch per 24 hours. Prov:CARL ENRIQUEZ MD 09/08/18 Pravastatin Sodium (PRAVASTATIN SODIUM) 40 Mg Tablet, 40 MG PO QDAY, #90 TAB 3 Refills Prov:CARL ENRIQUEZ MD 03/12/18 Levofloxacin 750 Mg Tab (LEVAQUIN 750 MG TAB) 750 Mg Tablet, 750 MG PO DAILY, #5 TAB 0 Refills Prov:CARL ENRIQUEZ MD 09/02/18 Methocarbamol (ROBAXIN-750) 750 Mg Tablet, 1500 MG PO QID for Muscle Relaxant, #30 TAB 0 Refills Prov:CARL ENRIQUEZ MD 09/02/18 Oxycodone Hcl/Acetaminophen (PERCOCET 5-325 MG TABLET) 1 Each Tablet, 1 EACH PO Q4H for PAIN, #30 TAB 0 Refills Prov:CARL ENRIQUEZ MD 09/02/18 Allergies: Coded Allergies: corn (Verified Allergy, Severe, ANAPHYLAXIS, 09/09/18) Uncoded Allergies: CATS (Allergy, Mild, 04/27/08) Patient History: FH: Parkinson's disease CHILD Hx Smoking: No Smoking Status: Never Smoker Exposure to Second Hand Smoke?: No Caffeine Intake: Coffee, Tea Caffeine/Cups Per Day: 2 CPD Hx Alcohol Use: Yes (6 pack every 3 weeks) Hx Substance Use Disorder: No Social Drug Use: Never Review of Systems Constitutional: No Fever, No Chills Neurological: Confusion, Weakness Cardiovascular: Chest Pain Respiratory: Shortness of Breath, Cough Gastrointestinal: No Nausea, No Vomiting, No Diarrhea; Constipation; No Hematemesis, No Hematochezia, No Melena, No Abdominal Pain Genitourinary: No Dysuria, No Hematuria Musculoskeletal: Pain, Impaired Mobility Exam Vital Signs Vital Signs Date Time Temp Pulse Resp B/P (MAP) Pulse Ox O2 Delivery O2 Flow Rate FiO2 09/11/18 11:06 98.9 70 16 144/108 (120) 93 Nasal Cannula 2.0 General Appearance: Alert, Awake Neuro: Other (No focal motor deficits) Eyes: PERRLA ENT: Oropharynx Clear, Other (abrasion over frontal area) Neck: Other (decreased ROM/no adenopathy) Cardiovascular: Regular Rate and Rhythm (occasional ectopy) Respiratory: Other (rales at bases left>right) Chest: No Tenderness GI: Abd Soft and Non-Tender : No CVA Tenderness Extremities: Warm, Perfused Integumentary: Generalized Fragile Skin Psych: Alert & Oriented X3 Medical Decision Making Data Points Result Diagram: 09/11/18 0735 09/11/18 0735 Item Value Date Time Albumin 3.9 g/dl 09/11/18 0735 Total Protein 7.2 g/dl 09/11/18 0735 B-Type Natriuretic Peptide 131 pg/ml H 09/11/18 0735 Troponin I 0.023 ng/ml 09/11/18 0735 Total Creatine Kinase 1542 U/L H 09/11/18 0735 Alkaline Phosphatase 96 U/L 09/11/18 0735 Alanine Aminotransferase (ALT/SGPT) 33 U/L 09/11/18734 Aspartate Amino Transf (AST/SGOT) 68 U/L H 09/11/18734 Total Bilirubin 1.5 mg/dl H 09/11/18734 Calcium Level 9.4 mg/dl 09/11/18734 Lactate 1.1 mmol/L 09/11/18734 Activated Partial Thromboplast Time 38 seconds H 09/11/18734 Prothromb Time International Ratio 1.07 09/11/18734 Prothrombin Time 13.9 seconds 09/11/18734 Urine Mucus None /HPF 09/11/18 09 Urine Hyaline Casts Few /LPF 09/11/18925 Urine Bacteria Few /HPF 09/11/18925 Urine Squamous Epithelial Cells None /LPF 09/11/18 09 Urine WBC 1 /HPF 09/11/18925 Urine RBC 2 /HPF 09/11/18925 Urine Leukocyte Esterase Negative 09/11/18925 Urine Urobilinogen Negative mg/dL 09/11/18925 Urine Bilirubin Negative 09/11/18925 Urine Nitrite Negative 09/11/18925 Urine Blood Moderate 09/11/18925 Urine Ketones Negative mg/dL 09/11/18925 Urine Glucose (UA) Negative mg/dL 09/11/18925 Urine Protein 30 mg/dL 09/11/18925 Urine Specific [place] 1.021 09/11/18925 Urine pH 5.0 pH 09/11/18925 Urine Clarity Clear 09/11/18925 Urine Color Yellow 09/11/18925 Assessment and Plan Problems: (1) Community acquired pneumonia Status: Acute Assessment & Plan: It appears he has a left lower lobe pneumonia (and possibly RLL). He has moderate hypoxia as well. He did have outpatient treatment with Levaquin, but may not have cleared completely. Will place on IV Rocephin and doxycycline. Will give supplemental oxygen and respiratory treatments as needed. Blood cultures were obtained in the ER. Monitor closely and modify therapy as needed. (2) Hypoxia Status: Acute Assessment & Plan: Due to acute pneumonia. Will treat as noted above. (3) Fall Status: Acute Assessment & Plan: May be due to combination of acute illness, hypoxia, pain/spasm medications. Will treat the pneumonia as noted above. Will try to reduce pain medications as well. Will have PT/OT see. (4) Rhabdomyolysis Status: Acute Assessment & Plan: Due to fall/prolonged stay on floor. He may have a component of myoglobinuria as well (UA dip positive for blood and negative micro). Will continue IV fluids. Watch renal function closely. (5) Back pain Status: Acute Assessment & Plan: Possibly related to pneumonia or fall. He has been using low dose Percocet and/or tramadol for control. These may have contributed to his fall. Will DC these in favor of low dose Lortab. Watch. Copies to: CARL ENRIQUEZ MD ; Venous Thromboembolism Antithrombotics Is Pt On Any Antithrombotics?: Yes Exam Sepsis Risk: No Definite Risk Problem Qualifiers (1) Community acquired pneumonia: Laterality: left (2) Rhabdomyolysis: Rhabdomyolysis type: traumatic Encounter type: initial encounter Qualified Codes: T79.6XXA - Traumatic ischemia of muscle, initial encounter ANASTASIYA FUCHS MD Sep 11, 2018 13:05
--- NOTE | 2018-09-11 13:27 | NUR ---
Physical Therapy Impression PT/OT co-eval complete. Pt demonstrating good strength, not requiring any assistance beyond CGA throughout session. Pt performed sit to supine transfer with SBA. Pt performed sit<>stand transfer with CGA and use of RW. Pt ambulated from EOB to around bed and to reclining chair. Pt required CGAx1, RW use, and 2L of O2. SpO2 remained >90%. Pt would benefit from further skilled Pt care to improve endurance/mobility to previous functional baseline. Pt left sitting in chair to eat lunch with significant other present. Recommendations pending progress, may benefit from Home Health. Physical Therapy Goals 1. Mariam bed mobility 2. Mariam transfers 3. Mariam ambulation of 150 ft. with use of least restrictive assisted device 4. Mariam ability to ascend 12 stairs Patient's Goals
--- NOTE | 2018-09-11 13:57 | NUR ---
Occupational Therapy Impression Initial OT/PT evaluation completed. Independent supine to sit bed mobility. CGA ambulation in room with RW. Declined toileting. Seated up in chair for lunch with no complaints. SpO2 WNL on room air. Oriented to call light with all needs met. Pending progression, pt may benefit from HH services upon discharge. Occupational Therapy Goals 1) Pt will be Independent UB/LB dressing. 2) Pt will be Independent toilet task. 3) Pt will be Independent grooming/hygiene standing. Patient's Goal
[2018-09-11] MEDS: NS(*) 0.9% 1000 ML BAG 1,000 ML IV PRN (14:09)
[2018-09-11] MEDS: DOXYCYCLINE HYCL 100 MG VIAL 100 MG in NS(*) 0.9% 250 ML BAG 250 ML IV SCH (14:10)
--- NOTE | 2018-09-11 14:56 | NUR ---
This Physical Therapist or Fagot Maker was present for the entire physical therapy session directing the services, making the skilled judgement, and was not engaged in treating another patient or doing another task at the same time as the treatment session. Addendum: 09/11/18 at 1456 by DEJA CARTER PT Amended: Links added.
[2018-09-11 16:11] VITALS: BP 131/73
[2018-09-11] MEDS: APAP/HYDROCODONE 325/5 TAB PO PRN ×2 (16:21→23:22)
[2018-09-11] MEDS ORDERED: BIMATOPROST 2.5 ML BTL 2.5 ML BTL OU SCH (17:00)
[2018-09-11 19:56] VITALS: BP 126/67
[2018-09-11] MEDS: CALCIUM CITRATE/ERGOCALCIFEROL PO SCH (20:21)
[2018-09-11] MEDS: DOCUSATE SODIUM 100 MG CAP PO SCH (20:21)
[2018-09-11] MEDS: GLUCOSAMINE SULFATE 500 MG CAP PO SCH (20:22)
[2018-09-11 23:24] VITALS: BP 161/119
[2018-09-12] VITALS (7 sets, daily range): BP systolic 128–173; BP diastolic 72–95; Ht 182.9 cm; Wt 91.6 kg
[2018-09-12] MEDS: DOXYCYCLINE HYCL 100 MG VIAL 100 MG in NS(*) 0.9% 250 ML BAG 250 ML IV SCH ×2 (00:37→13:04)
[2018-09-12] MEDS: NS(*) 0.9% 1000 ML BAG 1,000 ML IV PRN ×3 (00:38→17:24)
[2018-09-12] MEDS: APAP/HYDROCODONE 325/5 TAB PO PRN ×3 (05:31→23:57)
[2018-09-12 06:31] LABS: PLATELET COUNT, AUTOMATED 140 K/uL (150-450)
[2018-09-12] MEDS ORDERED: DIAZEPAM 5 MG TAB PO PRN (08:55)
[2018-09-12] MEDS: cefTRIAXone(*) 1 GM VIAL 1 GM in NS(*) 0.9% 100 ML MINI-BAG 100 ML IVPB SCH (09:45)
[2018-09-12] MEDS: GLUCOSAMINE SULFATE 500 MG CAP PO SCH ×2 (09:46→20:39)
[2018-09-12] MEDS: ENOXAPARIN 40 MG/0.4ML SYR SC SCH (09:46)
[2018-09-12] MEDS: CALCIUM CITRATE/ERGOCALCIFEROL PO SCH ×2 (09:46→20:39)
[2018-09-12] MEDS: DOCUSATE SODIUM 100 MG CAP PO SCH ×2 (09:46→20:39)
[2018-09-12] MEDS: PSYLLIUM 28% 1 PACKET PO SCH (09:46)
[2018-09-12] MEDS: MULTIVITAMINS TAB PO SCH (09:46)
--- NOTE | 2018-09-12 12:20 | Hospitalist Progress Note ---
Subjective Progress Notes Subjective He was admitted with pneumonia and rhabdomyolysis. He reports some improvement in symptoms, however, he does feel weak. Patient Complains of: Cardiovascular: No: Chest Pain Respiratory: Cough; No: Shortness of Breath Physical Exam Vital Signs Date Time Temp Pulse Resp B/P (MAP) Pulse Ox O2 Delivery O2 Flow Rate FiO2 09/12/18 11:13 92 09/12/18 11:05 98.1 69 18 143/84 (103) Nasal Cannula 2.0 Intake and Output 09/12/18 01:01 Intake Total 1720 ml Balance 1720 ml Intake Oral 720 ml IV Total 1000 ml # Voids 3 # Bowel Movements 1 General Appearance: Alert, Awake, No Acute Distress, Afebrile Neuro: No Gross deficits Cardiovascular: Regular Rate and Rhythm Respiratory: No Respiratory Distress, Clear to Auscultation GI: Soft and Non-Tender Extremities: Warm, Perfused; No Edema Integumentary: Other (abrasion noted to left forehead) Psych: Alert & Oriented X3, Appropriate Mood & Affect Result Diagram: 09/12/18 0542 09/12/18541 Monitor Interpretation: Normal Sinus Rhythm Assessment and Plan Problems: (1) Community acquired pneumonia Status: Acute Assessment & Plan: It appears he has a left lower lobe pneumonia (and possibly RLL). He has moderate hypoxia as well. He did have outpatient treatment with Levaquin, but may not have cleared completely. Will place on IV Rocephin and doxycycline. Will give supplemental oxygen and respiratory treatments as needed. Blood cultures were obtained in the ER. Monitor closely and modify therapy as needed. (2) Hypoxia Status: Acute Assessment & Plan: Due to acute pneumonia. Will treat as noted above. (3) Fall Status: Acute Assessment & Plan: May be due to combination of acute illness, hypoxia, pain/spasm medications. Will treat the pneumonia as noted above. Will try to reduce pain medications as well. Will have PT/OT see. (4) Rhabdomyolysis Status: Acute Assessment & Plan: Due to fall/prolonged stay on floor. He may have a component of myoglobinuria as well (UA dip positive for blood and negative micro). Will continue IV fluids. Watch renal function closely. (5) Back pain Status: Acute Assessment & Plan: Possibly related to pneumonia or fall. He has been using low dose Percocet and/or tramadol for control. These may have contributed to his fall. Will DC these in favor of low dose Lortab. Watch. Exam Sepsis Risk: No Definite Risk Problem Qualifiers (1) Community acquired pneumonia: Laterality: left (2) Rhabdomyolysis: Rhabdomyolysis type: traumatic Encounter type: initial encounter Qualified Codes: T79.6XXA - Traumatic ischemia of muscle, initial encounter NELLA TALAVERA Sep 12, 2018 12:20
--- NOTE | 2018-09-12 12:48 | NUR ---
This Physical Therapist or Branch Or Department Chief Librarian was present for the entire physical therapy session directing the services, making the skilled judgement, and was not engaged in treating another patient or doing another task at the same time as the treatment session. Addendum: 09/12/18 at 1248 by PAWAN MTZ PT Amended: Links added.
--- NOTE | 2018-09-12 12:48 | NUR ---
Physical Therapy Impression Pt showing good tolerance to ambulation and adequate strength for stair training. Pt performed sit<>stand transfers with SBA and use of RW.Pt ambulated 225 ft with RW, O2 of 2L, and SBA. Pt with no complaints during ambulation. Pt ascended/descended 1 stair with CGA. Pt performed stair quickly, simply picking up RW and carrying it over stair. Pt left sitting in chair with all needs met and call light in reach. Pt would benefit from further skilled PT care to improve ambulation to previous baseline and to ensure safe stair negotiation. Recommendations pending progress, may require HH. Physical Therapy Goals 1. Mariam bed mobility 2. Mariam transfers 3. Mariam ambulation of 150 ft. with use of least restrictive assisted device 4. Mariam ability to ascend 12 stairs Patient's Goals
[2018-09-12] MEDS ORDERED: PANT40TA65 PO (14:53)
[2018-09-12] MEDS ORDERED: FLUT16SP19 NS (14:53)
--- NOTE | 2018-09-12 15:48 | NUR ---
Occupational Therapy Impression Pt alert and agreeable to OT tx. Reporting increased pain in neck and middle lower back, not at baseline. Heat applied with relief noted. Min A log roll supine to sit. Significant pain. CGA ambulation x250ft with W. CGA/SBA toileting. SBA LB dressing. SpO2 WNL on 1L. Pt not near baseline for discharge home alone, decreased balance, increased pain, and decreased endurance. Pending progress during acute medical stay,recommend HH or short-term subacute rehab. Occupational Therapy Goals 1) Pt will be Independent UB/LB dressing. 2) Pt will be Independent toilet task. 3) Pt will be Independent grooming/hygiene standing. Patient's Goal
[2018-09-12] MEDS: CYCLOBENZAPRINE HCL 10 MG TAB PO PRN (19:26)
[2018-09-12] MEDS: BIMATOPROST 2.5 ML BTL 2.5 ML BTL OU SCH (20:39)
[2018-09-13] MEDS: DOXYCYCLINE HYCL 100 MG VIAL 100 MG in NS(*) 0.9% 250 ML BAG 250 ML IV SCH ×2 (00:47→13:56)
[2018-09-13 04:34] VITALS: BP 169/95
[2018-09-13] MEDS: CYCLOBENZAPRINE HCL 10 MG TAB PO PRN (04:48)
[2018-09-13 05:59] LABS: PLATELET COUNT, AUTOMATED 160 K/uL (150-450)
[2018-09-13] MEDS: NS(*) 0.9% 1000 ML BAG 1,000 ML IV PRN ×2 (07:11→22:12)
[2018-09-13 08:17] VITALS: BP 176/93
[2018-09-13] MEDS: APAP/HYDROCODONE 325/5 TAB PO PRN ×3 (08:22→21:27)
[2018-09-13] MEDS: MULTIVITAMINS TAB PO SCH (08:23)
[2018-09-13] MEDS: DOCUSATE SODIUM 100 MG CAP PO SCH ×2 (08:23→21:23)
[2018-09-13] MEDS: CALCIUM CITRATE/ERGOCALCIFEROL PO SCH ×2 (08:23→21:24)
[2018-09-13] MEDS: GLUCOSAMINE SULFATE 500 MG CAP PO SCH ×2 (08:23→21:24)
[2018-09-13] MEDS: PSYLLIUM 28% 1 PACKET PO SCH (08:24)
[2018-09-13] MEDS: ENOXAPARIN 40 MG/0.4ML SYR SC SCH (08:24)
--- NOTE | 2018-09-13 09:27 | NUR ---
Physical Therapy Impression Patient presents in room sitting in judy chair on IV and is agreeable to therapy. Patient ambulated with FWW ~400 feet CGA with therapist pushing IV pole with a long seated rest break to perform stairs in gym. Patient instructed in stair training ascend and descend 4 stairs CGA x 3 reps step over step to simulate stairs at home. Patient demonstrated safe technique with stairs. Patient toileted I in room and was SBA with brushing teeth. Patient was left in room in judy chair with call light on and nursing present as his IV was finished. Physical Therapy Goals 1. Mariam bed mobility 2. Mariam transfers 3. Mariam ambulation of 150 ft. with use of least restrictive assisted device 4. Marima ability to ascend 12 stairs Patient's Goals
[2018-09-13] MEDS: cefTRIAXone(*) 1 GM VIAL 1 GM in NS(*) 0.9% 100 ML MINI-BAG 100 ML IVPB SCH (09:31)
[2018-09-13 11:30] VITALS: BP 141/90
[2018-09-13] MEDS ORDERED: DIAZEPAM 2 MG TAB PO PRN ×2 (12:05→12:10)
--- NOTE | 2018-09-13 12:48 | Antimicrobial Stewardship ---
Antimicrobial Time Out Antimicrobial Stewardship MD Service: Hospitalist Indications: CAP Antimicrobial Used Rocephin and doxycycline after failed outpatient treatment with Levaquin. Culture Results: No (cultures pending) SONG DELGADO Sep 13, 2018 12:48
[2018-09-13 15:18] VITALS: BP 160/99
--- NOTE | 2018-09-13 17:10 | Hospitalist Progress Note ---
Subjective Progress Notes Subjective The patient denies new complaints. He continues to complain of mental fogginess which started after a back procedure last year. He is concerned that his medications may be contributing. Physical Exam Vital Signs Date Time Temp Pulse Resp B/P (MAP) Pulse Ox O2 Delivery O2 Flow Rate FiO2 09/13/18 15:18 97.9 71 18 160/99 (119) 90 Room Air 09/13/18 04:34 0.5 Intake and Output 09/13/18 07:01 Intake Total 2153 ml Output Total 2275 ml Balance -122 ml Intake Oral 700 ml IV Total 1453 ml Output Urine Total 2275 ml # Voids 10 # Bowel Movements 2 General Appearance: Alert, Awake, No Acute Distress, Afebrile Cardiovascular: Regular Rate and Rhythm Respiratory: Other (Rales in the L base. ) GI: Soft and Non-Tender Extremities: Warm Psych: Appropriate Mood & Affect Result Diagram: 09/13/18 0549 09/13/18 0549 Monitor Interpretation: Normal Sinus Rhythm Assessment and Plan Problems: (1) Community acquired pneumonia Status: Acute Assessment & Plan: It appears he has a left lower lobe pneumonia (and possibly RLL). He has moderate hypoxia as well. He did have outpatient treatment with Levaquin, but may not have cleared completely. Will place on IV Rocephin and doxycycline. Will give supplemental oxygen and respiratory treatments as needed. Blood cultures were obtained in the ER and are negative to date. Monitor closely and modify therapy as needed. (2) Hypoxia Status: Acute Assessment & Plan: Due to acute pneumonia. Will treat as noted above. (3) Fall Status: Acute Assessment & Plan: May be due to combination of acute illness, hypoxia, pain/spasm medications. Will treat the pneumonia as noted above. Will try to reduce pain medications as well. Will have PT/OT see. (4) Rhabdomyolysis Status: Acute Assessment & Plan: Due to fall/prolonged stay on floor. He may have a component of myoglobinuria as well (UA dip positive for blood and negative micro). Will continue IV fluids. Watch renal function closely. (5) Back pain Status: Acute Assessment & Plan: Possibly related to pneumonia or fall. He has been using low dose Percocet and/or tramadol for control. These may have contributed to his fal l. Will DC these in favor of low dose Lortab. Watch. (6) Mental deterioration Status: Chronic Assessment & Plan: The patient complains of "mental fogginess" which he states started after his back surgery in June 2017. He has been on and off of several medications that could contribute including narcotic pain medications and muscle relaxants. He recently took Levaquin for a left sided pneumonia as well (Per Dr. Lopez's chart this was prescribed on September 02). It was recommended that he follow up with his PCP after discharge for further evaluation and may need an MRI of the brain for further evaluation. CT of the head on this admission (September 11) was negative for acute issues. Time Spent on Plan of Care: < 30 min Exam Sepsis Risk: No Definite Risk Problem Qualifiers (1) Community acquired pneumonia: Laterality: left (2) Rhabdomyolysis: Rhabdomyolysis type: traumatic Encounter type: initial encounter Qualified Codes: T79.6XXA - Traumatic ischemia of muscle, initial encounter SONG FUCHS MD Sep 13, 2018 17:10
[2018-09-13 20:03] VITALS: BP 177/96
[2018-09-13] MEDS: BIMATOPROST 2.5 ML BTL 2.5 ML BTL OU SCH (21:23)
[2018-09-13 23:02] VITALS: BP 169/98
[2018-09-14] MEDS: DOXYCYCLINE HYCL 100 MG VIAL 100 MG in NS(*) 0.9% 250 ML BAG 250 ML IV SCH ×2 (00:49→13:29)
[2018-09-14 01:32] VITALS: BP 172/105
[2018-09-14 02:48] VITALS: BP 168/92
[2018-09-14] MEDS: APAP/HYDROCODONE 325/5 TAB PO PRN (05:11)
[2018-09-14 05:47] LABS: PLATELET COUNT, AUTOMATED 183 K/uL (150-450)
[2018-09-14] MEDS: MULTIVITAMINS TAB PO SCH (09:11)
[2018-09-14] MEDS: cefTRIAXone(*) 1 GM VIAL 1 GM in NS(*) 0.9% 100 ML MINI-BAG 100 ML IVPB SCH (09:11)
[2018-09-14] MEDS: GLUCOSAMINE SULFATE 500 MG CAP PO SCH (09:11)
[2018-09-14] MEDS: CALCIUM CITRATE/ERGOCALCIFEROL PO SCH (09:11)
[2018-09-14] MEDS: PSYLLIUM 28% 1 PACKET PO SCH (09:11)
[2018-09-14] MEDS: ENOXAPARIN 40 MG/0.4ML SYR SC SCH (09:11)
[2018-09-14] MEDS: DOCUSATE SODIUM 100 MG CAP PO SCH (09:13)
[2018-09-14 09:22] VITALS: BP 156/93
[2018-09-14 12:04] VITALS: BP 150/90
[2018-09-14] MEDS ORDERED: DOXY-181 PO (12:44)
[2018-09-14] MEDS ORDERED: CEF300 PO (12:44)
--- NOTE | 2018-09-14 12:52 | Hospitalist Depart ---
Discharge Summary Reason for Hosp/Final Diag: (1) Community acquired pneumonia Status: Acute Hospital Course & Plan: It appears he has a L lower lobe PNA. Blood cultures were obtained in the ER and are negative to date. Responded well to doxycycline and ceftriaxone, changed to PO doxycycline and cefdinir to complete 10d therapy. Patient was recommended for short term rehab or HH but declined either preferring to go home and under own care. (2) Hypoxia Status: Acute Hospital Course & Plan: Resolved. Due to acute pneumonia. (3) Fall Status: Acute Hospital Course & Plan: May be due to combination of acute illness, hypoxia, pain/spasm medications. Recommend hold pain medications and reevaluate with PCP. PT/OT recommend short term rehab or HH but patient declines either. (4) Rhabdomyolysis Status: Acute Hospital Course & Plan: Resolved, Due to fall/prolonged stay on floor. (5) Back pain Status: Acute Hospital Course & Plan: Possibly related to pneumonia or fall. He has been using low dose Percocet and/or tramadol for control. These may have contributed to his fall. Will DC these until follow up with PCP. (6) Mental deterioration Status: Chronic Hospital Course & Plan: The patient complains of "mental fogginess" which he states started after his back surgery in June 2017. He has been on and off of several medications that could contribute including narcotic pain medications and muscle relaxants. He recently took Levaquin for a left sided pneumonia as well (Per Dr. Lopez's chart this was prescribed on September 02). It was recommended that he follow up with his PCP after discharge for further evaluation and may need an MRI of the brain for further evaluation. CT of the head on this admission (September 11) was negative for acute issues. Departure Weight (Pounds): 202 Result Diagram: 09/14/1851409/14/18514 Condition: Improved Discharge: Home PT/OT Follow Up For: PT For Strengthening, OT For ADL's, PT Evaluation and Treat, OT Evaluation and Treat Home Health RN Follow Up For: Medication Management, Nursing Assessment Home Health TAX CONSULTANT Follow Up For: ADL Assistance Discharge Instructions Home Meds Active Scripts Cefdinir 300 Mg Cap (OMNICEF 300 MG CAP (OR EQUIV)) 300 Mg Cap, 300 MG PO BID for 7 Days, #14 CAP Prov:LEYDI NOE DO 09/14/18 Doxycycline Hyclate (DOXYCYCLINE HYCLATE) 100 Mg Capsule, 100 MG PO BID for 7 Days, #14 CAPSULE Prov:LEYDI NOE DO 09/14/18 Umeclidinium Brm/Vilanterol Tr (Anoro Ellipta 62.5-25 Mcg INH) 1 Each Disk.w.dev, 1 INHALATION INH DAILY, #1 INHALER 11 Refills Prov:CARL LOPEZ MD 09/11/18 Docusate Sodium (COLACE) 100 Mg Capsule, 100 MG PO QDAY, #10 CAPSULE 0 Refills Take this medicine to prevent constipation while you are on the Percocet. Prov:GREER SIBLEY MD 08/30/18 Diclofenac Sodium 1% Gel (VOLTAREN 1% GEL) 100 Gm Gel..gram., 4 GM TOP QID, #1 TUBE 3 Refills 4 grams four times a day for left knee and 2 grams four times a day for left thumb joint Prov:CARL LOPEZ MD 01/23/18 Albuterol Sulfate 90 Mcg/Act (PROAIR HFA 90 MCG/ACT) 8.5 Gm Hfa.aer.ad, 2 PUFF IH Q4-6H, #1 INHALER Prov:CARL LOPEZ MD 03/25/17 Reported Medications Fluticasone Prop 50 Mcg Ns (FLONASE 50 MCG NS) 16 Gm Morris.susp, 2 SPRAYS NS QDAY, BOT 09/12/18 Pantoprazole Sodium (PANTOPRAZOLE SODIUM) 40 Mg Tablet.dr, 1 TAB PO QDAY, TAB.SR 09/12/18 [Lutein/[place]-3] No Conflict Check, 1 CAP PO DAILY 08/22/17 Glucosamine Sulfate 2KCL (GLUCOSAMINE) 1,000 Mg Tablet, 1000 MG PO BID 08/22/17 Psyllium Husk (Metamucil) Unknown Strength Capsule 01/15/17 Multivitamin (MEN'S MULTI-VITAMIN) 1 Each Tablet, 1 EACH PO DAILY 01/15/17 Calcium Citrate/Vitamin D3 (CALCIUM CITRATE - VIT D CAPLET) 1 Each Tablet, 1 EACH PO BID 11/09/13 Bimatoprost (LUMIGAN) 2.5 Ml Drops, 0.01 ML OP DAILY 11/08/13 Discontinued Reported Medications Diazepam (VALIUM) 5 Mg Tablet, 5 MG PO QHS, #5 TAB 09/08/18 Tramadol Hcl (TRAMADOL HCL) 50 Mg Tablet, 50-100 MG PO Q6H, TAB 09/08/18 Discontinued Scripts Azithromycin (Z-PACK) 250 Mg Tablet, 1 TAB PO QDAY for 4 Days, #4 TAB 0 Refills Prov:GREER RODRIGUEZ MD 09/10/18 Lidocaine/Menthol (LIDOPATCH) 1 Each Adh..patch, 1 EACH TP DAILY, #10 PATCH.24H Apply for up to 12 hours. Max 1 patch per 24 hours. Prov:CARL LOPEZ MD 09/08/18 Pravastatin Sodium (PRAVASTATIN SODIUM) 40 Mg Tablet, 40 MG PO QDAY, #90 TAB 3 Refills Prov:CARL LOPEZ MD 03/12/18 Levofloxacin 750 Mg Tab (LEVAQUIN 750 MG TAB) 750 Mg Tablet, 750 MG PO DAILY, #5 TAB 0 Refills Prov:CARL LOPEZ MD 09/02/18 Methocarbamol (ROBAXIN-750) 750 Mg Tablet, 1500 MG PO QID for Muscle Relaxant, #30 TAB 0 Refills Prov:CARL LOPEZ MD 09/02/18 Oxycodone Hcl/Acetaminophen (PERCOCET 5-325 MG TABLET) 1 Each Tablet, 1 EACH PO Q4H for PAIN, #30 TAB 0 Refills Prov:CARL LOPEZ MD 09/02/18 Diet: Regular Activity: As Tolerated Special Instructions: DO not take your calcium until you complete the antibiotics prescribed. You were started on doxycycline and cefdinir for pneumonia, take as prescribed until gone. Stop taking tramadol, percocet and valium until follow up with PCP. Copies to: CARL LOPEZ MD ; Venous Thromboembolism Antithrombotics Is Pt On Any Antithrombotics?: Yes Problem Qualifiers (1) Community acquired pneumonia: Laterality: left (2) Rhabdomyolysis: Rhabdomyolysis type: traumatic Encounter type: initial encounter Qualified Codes: T79.6XXA - Traumatic ischemia of muscle, initial encounter LEYDI NOE DO Sep 14, 2018 12:52
[2018-09-16] MEDS ORDERED: MELO-205 PO (16:15)
== END 2018-09-14 15:00 | disposition home health service (06) | DRG 194 ==
LOC: ER 07:46 → MED 10:39
PROVIDERS: ADMIT Internal Medicine; ATTEND Internal Medicine
DX: J18.1 Lobar pneumonia, unspecified organism (principal); J44.0 Chronic obstructive pulmonary disease with (acute) lower respiratory infection; R09.02 Hypoxemia; T79.6XXA Traumatic ischemia of muscle, initial encounter; G47.33 Obstructive sleep apnea (adult) (pediatric); G50.0 Trigeminal neuralgia; G47.61 Periodic limb movement disorder; E78.5 Hyperlipidemia, unspecified; M85.80 Other specified disorders of bone density and structure, unspecified site; N52.9 Male erectile dysfunction, unspecified; H40.9 Unspecified glaucoma; M47.816 Spondylosis without myelopathy or radiculopathy, lumbar region; F29 Unspecified psychosis not due to a substance or known physiological condition; M47.812 Spondylosis without myelopathy or radiculopathy, cervical region; G62.9 Polyneuropathy, unspecified; W18.30XA Fall on same level, unspecified, initial encounter; Z86.711 Personal history of pulmonary embolism; Z85.46 Personal history of malignant neoplasm of prostate
CPT/HCPCS: 36415; 70450; 71046; 72125; 72128; 72131; 81001; 82040; 82247; 82310; 82374; 82435; 82550; 82565; 82947; 83605; 83880; 84075; 84132; 84155; 84295; 84450; 84460; 84484; 84520; 85025; 85610; 85730; 87040; 87088; 93005; 96361; 96374; 96375; 97161; 97165; 99285; A9270; J0696; J1650; J1885; J3490; J7030; J7050

== ENCOUNTER → 2018-09-11 | Outpatient (CLI) | payer MEDICARE ==
[~2018-09-11] MED LIST changes: +AZIT-17 PO; +CEF300 PO; +DOXY-181 PO; +MELO-205 PO
[2018-09-12 09:22] VITALS: BMI 27.4
== END ==
LOC: AMB 07:09
PROVIDERS: ATTEND Nurse Practitioner
DX: M54.9 Dorsalgia, unspecified (principal); S01.01XA Laceration without foreign body of scalp, initial encounter; W06.XXXA Fall from bed, initial encounter
CPT/HCPCS: A0425; A0427

== ENCOUNTER → 2018-10-02 | Outpatient (CLI) | payer MEDICARE ==
[2018-09-12 09:22] VITALS: BMI 27.4
[~2018-10-02] MED LIST changes: +ACET500T68 PO; +CEF300 PO; +DOXY-181 PO; +MELO-205 PO; -PSYL0.4C2; +PSYL0.4C2 PO
== END ==
LOC: LAB 14:43
PROVIDERS: ATTEND Emergency Medicine
DX: R94.5 Abnormal results of liver function studies (principal); M62.82 Rhabdomyolysis
CPT/HCPCS: 36415; 82040; 82247; 82310; 82374; 82435; 82550; 82565; 82947; 84075; 84132; 84155; 84295; 84450; 84460; 84520